=== PATIENT | male | born 1945 | race Caucasian/White ===

== ENCOUNTER 2018-05-19 20:06 | Observation (INO) | payer OTHER ==
[2018-05-19] MEDS ORDERED: NA CHLORIDE 0.9% 1,000 ML ONE (20:23)
[2018-05-19] MEDS ORDERED: MORPHINE 4 MG/ML SYR ONE (20:28)
[2018-05-19] MEDS ORDERED: ASPIRIN 81 MG CHEWABLE TABLET ONE (20:28)
[2018-05-19] MEDS ORDERED: PANTOPRAZOLE 40 MG INJ ONE (20:29)
[2018-05-19] MEDS ORDERED: ONDANSETRON 4 MG/2 ML VIAL ONE (20:29)
[2018-05-19 20:36] LABS: Absolute Lymphocytes (CBC) 1.2 K/uL (0.7-4.9); Absolute Monocytes 0.5 K/uL (0.1-1.3); Absolute Neutrophil 4.5 K/uL (1.8-8.0); Basophils % 1.1 % (0-1.3); Eosinophils % 5.1 % (0-4.4); Lymphocytes % 18.2 % (15.3-44.8); MCH 31.5 pg (27.0-35.0); MPV 8.1 fL (7.6-11.3); Monocytes % 7.9 % (3.3-12.3); RBC Red Blood Cell Count 4.57 M/uL (4.33-5.43)
[2018-05-19 20:42] LABS: Protime INR 0.99
--- NOTE | 2018-05-19 20:47 | RAD REPORT ---
EXAM DESCRIPTION: RAD - Chest Single View - 05/19/2018 8:41 pm CLINICAL HISTORY: CHEST PAIN Chest pain. COMPARISON: CHEST SINGLE VIEW dated 08/16/2015; CHEST SINGLE VIEW dated 08/13/2015; CHEST SINGLE VIE W dated 08/11/2015; CHEST SINGLE VIEW dated 12/11/2009 FINDINGS: Portable technique limits examination quality. The lungs are grossly clear. The heart is normal in size. No displaced fractures.Stimulator device no charity. IMPRESSION: No acute intrathoracic process suspected.
--- NOTE | 2018-05-19 20:50 | EDPHYS ---
Physician Documentation [facility] Name: Christian Gonzales III Age: 73 yrs Sex: Male : 1945 Arrival Date: 05/19/2018 Time: 20:08 Bed 4 Private MD: Jose Gonzales HPI: 05/19 20:18 This 73 yrs old Male presents to ER via Unassigned with complaints of Chest trevor Pain. 20:18 The patient or guardian reports chest pain that is located primarily in the substernal trevor area, epigastric area, anterior chest wall, bilaterally. Onset: just prior to arrival. The pain does not radiate. Associated signs and symptoms: The patient has no apparent associated signs or symptoms. The chest pain is described as causing indigestion, a pressure. Duration: The patient or guardian reports a single episode, that is still ongoing, and unchanged. Modifying factors: The symptoms are alleviated by nothing. the symptoms are aggravated by nothing. Severity of pain: At its worst the pain was mild moderate in the emergency department the pain is unchanged. The patient has experienced similar episodes in the past, a few times. Historical: - Allergies: 20:29 Demerol; fc - Home Meds: 20:29 citalopram 20 mg tab 1 tab once daily [Active]; carbidopa-levodopa 25-100 mg Oral tab 1 fc tab as needed up to eight times a day [Active]; potassium gluconate 550 mg (90 mg) oral tab daily [Active]; ropinirole 8 mg oral Tb24 1 tab once daily [Active]; - PMHx: 20:29 Parkinsons; Myocardial infarction; PVD; cancer - colon and prostate; Hypertension; fc kidney problems; barett's esophagus; - PSHx: 20:29 colon resection; prostetectomy; Hernia repair; deep brain stimulator; fc - Immunization history:: Last tetanus immunization: unknown, Flu vaccine is not up to date. - Social history:: Smoking status: Patient/guardian denies using tobacco. - Family history:: not pertinent. - Ebola Screening: : Patient negative for fever greater than or equal to 101.5 degrees Fahrenheit, and additional compatible Ebola Virus Disease symptoms Patient denies exposure to infectious person Patient denies travel to an Ebola-affected area in the 21 days before illness onset. ROS: 20:18 Constitutional: Negative for fever, chills, and weight loss, Eyes: Negative for injury, trevor pain, redness, and discharge, ENT: Negative for injury, pain, and discharge, Neck: Negative for injury, pain, and swelling, Respiratory: Negative for shortness of breath, cough, wheezing, and pleuritic chest pain, Back: Negative for injury and pain, : Negative for injury, bleeding, discharge, and swelling, MS/Extremity: Negative for injury and deformity, Skin: Negative for injury, rash, and discoloration, Neuro: Negative for headache, weakness, numbness, tingling, and seizure, Psych: Negative for depression, anxiety, suicide ideation, homicidal ideation, and hallucinations, Allergy/Immunology: Negative for hives, rash, and allergies, Endocrine: Negative for neck swelling, polydipsia, polyuria, polyphagia, and marked weight changes, Hematologic/Lymphatic: Negative for swollen nodes, abnormal bleeding, and unusual bruising. 20:18 Cardiovascular: Positive for chest pain. 20:18 Abdomen/GI: Positive for abdominal pain, of the epigastric area, right upper quadrant and left upper quadrant. Exam: 20:18 Constitutional: This is a well developed, well nourished patient who is awake, alert, trevor and in no acute distress. Head/Face: Normocephalic, atraumatic. Eyes: Pupils equal round and reactive to light, extra-ocular motions intact. Lids and lashes normal. Conjunctiva and sclera are non-icteric and not injected. Cornea within normal limits. Periorbital areas with no swelling, redness, or edema. ENT: Nares patent. No nasal discharge, no septal abnormalities noted. Tympanic membranes are normal and external auditory canals are clear. Oropharynx with no redness, swelling, or masses, exudates, or evidence of obstruction, uvula midline. Mucous membranes moist. Neck: Trachea midline, no thyromegaly or masses palpated, and no cervical lymphadenopathy. Supple, full range of motion without nuchal rigidity, or vertebral point tenderness. No Meningismus. Chest/axilla: Normal chest wall appearance and motion. Nontender with no deformity. No lesions are appreciated. Cardiovascular: Regular rate and rhythm with a normal S1 and S2. No gallops, murmurs, or rubs. Normal PMI, no JVD. No pulse deficits. Respiratory: Lungs have equal breath sounds bilaterally, clear to auscultation and percussion. No rales, rhonchi or wheezes noted. No increased work of breathing, no retractions or nasal flaring. Back: No spinal tenderness. No costovertebral tenderness. Full range of motion. Male : Normal genitalia with no discharge or lesions. Skin: Warm, dry with normal turgor. Normal color with no rashes, no lesions, and no evidence of cellulitis. Neuro: Awake and alert, GCS 15, oriented to person, place, time, and situation. Cranial nerves II-XII grossly intact. Motor strength 5/5 in all extremities. Sensory grossly intact. Cerebellar exam normal. Normal gait. Psych: Awake, alert, with orientation to person, place and time. Behavior, mood, and affect are within normal limits. 20:18 Abdomen/GI: Inspection: distension, Bowel sounds: normal, Palpation: mild abdominal tenderness, in the epigastric area, right upper quadrant and left upper quadrant, Liver: no appreciated palpable abnormalities, Hernia: not appreciated. Vital Signs: 20:10 BP 140 / 102; Pulse 84; Resp 18; Temp 97.8(O); Pulse Ox 99% on R/A; Weight 123.38 kg (R); Height 5 ft. 10 in. (177.80 cm) (R); Pain 8/10; 20:30 BP 158 / 95; Pulse 84; Resp 18; Pulse Ox 94% on R/A; aj 22:00 BP 141 / 94; Pulse 77; Resp 18; Pulse Ox 99% on R/A; ak1 20:10 Body Mass Index 39.03 (123.38 kg, 177.80 cm) MDM: 20:09 Patient medically screened. [facility] 20:18 Data reviewed: vital signs, nurses notes, lab test result(s), EKG, radiologic studies, [facility] CT scan, plain films. 05/19 20:10 Order name: Basic Metabolic Panel; Complete Time: 21:20 [facility] 05/19 20:10 Order name: CBC with Diff; Complete Time: 20:45 [facility] 05/19 20:10 Order name: LFT's; Complete Time: 21:20 [facility] 05/19 20:10 Order name: Magnesium; Complete Time: 21:20 [facility] 05/19 20:10 Order name: NT PRO-BNP; Complete Time: 21:20 [facility] 05/19 20:10 Order name: PT-INR; Complete Time: 20:45 [facility] 05/19 20:10 Order name: Troponin (emerg Dept Use Only); Complete Time: 21:20 [facility] 05/19 20:10 Order name: XRAY Chest (1 view); Complete Time: 21:20 [facility] 05/19 20:10 Order name: Lipase; Complete Time: 21:20 [facility] 05/19 20:18 Order name: CT Aorta for Dissection [facility] 05/19 20:54 Order name: Echo with Doppler [facility] 05/19 23:42 Order name: Troponin I [facility] 05/19 20:10 Order name: EKG; Complete Time: 20:11 [facility] 05/19 20:10 Order name: Cardiac monitoring; Complete Time: 20:21 [facility] 05/19 20:10 Order name: EKG - Nurse/Tech; Complete Time: 20:21 [facility] 05/19 20:10 Order name: IV Saline Lock; Complete Time: 20:21 [facility] 05/19 20:10 Order name: Labs collected and sent; Complete Time: 20:21 [facility] 05/19 20:10 Order name: O2 Per Protocol; Complete Time: 20:21 [facility] 05/19 20:10 Order name: O2 Sat Monitoring; Complete Time: 20:21 [facility] 05/19 20:54 Order name: CONS Physician Consult [facility] 05/19 20:54 Order name: CONS Physician Consult [facility] 05/19 21:49 Order name: EKG; Complete Time: 21:49 ms 05/19 21:49 Order name: EKG - Nurse/Tech; Complete Time: 21:57 ms Administered Medications: 20:20 Drug: NS 0.9% 1000 ml Route: IV; Rate: 125 ml/hr; Site: left antecubital; aj 22:18 Follow up: IV Status: Infusion continued upon admission ak1 20:29 Drug: ProTONIX 40 mg Route: IVP; Site: left antecubital; aj 21:49 Follow up: Response: No adverse reaction aj 20:30 Drug: Aspirin 162 mg Route: PO; aj 21:49 Follow up: Response: No adverse reaction aj 20:30 Drug: Zofran 4 mg Route: IVP; Site: left antecubital; aj 21:49 Follow up: Response: No adverse reaction aj 21:48 Drug: Lopressor (metoprolol TARTRATE) 50 mg Route: PO; 22:18 Follow up: Response: No adverse reaction ak1 21:49 Not Given (Patient Refused): morphine 2 mg IVP once aj 21:49 Not Given (Patient Refused): morphine 2 mg IVP once aj 21:49 Drug: Lovenox 100 mg Route: Sub-Q; Site: right lower abdomen; aj 22:18 Follow up: Response: No adverse reaction ak1 Disposition: 05/19/18 20:50 Hospitalization ordered by Alissa Mcclure for Observation. Preliminary diagnosis are Other chest pain, Obesity, unspecified, Essential (primary) hypertension, Parkinson's disease, Nathan's esophagus, Unspecified kidney failure. - Bed requested for Telemetry/MedSurg (observation). - Status is Observation. ak1 - Condition is Fair. - Problem is new. - Symptoms have improved. UTI on Admission? No Signatures: Dispatcher [employer] EDMS Salma Marcos RN RN mw Myers, Amanda, RN RN aj Anderson, Corey, MD MD cha Chretien, Felicia, RN RN fc Solis, Maria ms Krenek, Amber RN RN ak1 Corrections: (The following items were deleted from the chart) 20:53 20:50 Hospitalization Ordered by Alissa Mcclure MD for Observation. Preliminary deisy diagnosis is Other chest pain; Obesity, unspecified; Essential (primary) hypertension; Parkinson's disease; Nathan's esophagus. Bed requested for Telemetry/MedSurg (observation). Status is Observation. Condition is Fair. Problem is new. Symptoms have improved. UTI on Admission? No. trevor 21:31 20:53 05/19/2018 20:50 Hospitalization Ordered by Alissa Mcclure MD for Observation. trevor Preliminary diagnosis is Other chest pain; Obesity, unspecified; Essential (primary) hypertension; Parkinson's disease; Nathan's esophagus. Bed requested for Telemetry/MedSurg (observation). Status is Observation. Condition is Fair. Problem is new. Symptoms have improved. UTI on Admission? No. deisy 05/20 00:02 05/19 21:31 05/19/2018 20:50 Hospitalization Ordered by Alissa Mcclure MD for ak1 Observation. Preliminary diagnosis is Other chest pain; Obesity, unspecified; Essential (primary) hypertension; Parkinson's disease; Nathan's esophagus; Unspecified kidney failure. Bed requested for Telemetry/MedSurg (observation). Status is Observation. Condition is Fair. Problem is new. Symptoms have improved. UTI on Admission? No. trevor
--- NOTE | 2018-05-19 20:50 | ER ---
Nurse's Notes [facility] Name: Christian Gonzales III Age: 73 yrs Sex: Male : 1945 Arrival Date: 05/19/2018 Time: 20:08 Bed 4 Private MD: Diagnosis: Other chest pain;Obesity, unspecified;Essential (primary) hypertension;Parkinson's disease;Nathan's esophagus;Unspecified kidney failure Presentation: 05/19 20:10 Presenting complaint: states: that pt started to have chest pressure at approx fc 1800 after eating. BP at home 191/89. Also having nausea, vomiting and shortness of breath. Transition of care: patient was not received from another setting of care. Onset of symptoms was May 19, 2018 at 19:00. Risk Assessment: Do you want to hurt yourself or someone else? Patient reports no desire to harm self or others. Initial Sepsis Screen: Does the patient meet any 2 criteria? No. Patient's initial sepsis screen is negative. Does the patient have a suspected source of infection? No. Patient's initial sepsis screen is negative. Care prior to arrival: Medication(s) given: Tums x 2 at 2000. 20:10 Method Of Arrival: Wheelchair fc 20:10 Acuity: ANDRES 3 fc Historical: - Allergies: 20:29 Demerol; fc - Home Meds: 20:29 citalopram 20 mg tab 1 tab once daily [Active]; carbidopa-levodopa 25-100 mg Oral tab 1 fc tab as needed up to eight times a day [Active]; potassium gluconate 550 mg (90 mg) oral tab daily [Active]; ropinirole 8 mg oral Tb24 1 tab once daily [Active]; - PMHx: 20:29 Parkinsons; Myocardial infarction; PVD; cancer - colon and prostate; Hypertension; fc kidney problems; barett's esophagus; - PSHx: 20:29 colon resection; prostetectomy; Hernia repair; deep brain stimulator; fc - Immunization history:: Last tetanus immunization: unknown, Flu vaccine is not up to date. - Social history:: Smoking status: Patient/guardian denies using tobacco. - Family history:: not pertinent. - Ebola Screening: : Patient negative for fever greater than or equal to 101.5 degrees Fahrenheit, and additional compatible Ebola Virus Disease symptoms Patient denies exposure to infectious person Patient denies travel to an Ebola-affected area in the 21 days before illness onset. Screenin:10 Abuse screen: Denies threats or abuse. Nutritional screening: No deficits noted. fc Tuberculosis screening: No symptoms or risk factors identified. Fall Risk Fall in past 12 months (25 points). Secondary diagnosis (15 points) parkinson. No IV (0 pts). Ambulatory Aid- Crutches/Cane/Walker (15 pts). Gait- Weak (10 pts.). Mental Status- Overestimates/Forgets Limitations (15 pts.). Total Wolfe Fall Scale indicates High Risk Score (45 or more points). Fall prevention measures have been instituted. Side Rails Up X 2 Placed Close to Nursing Station Frequent Obs/Assessments Occuring Family Present and informed to notify staff if the need to leave the bedside As available patient and family educated on Fall Prevention Program and Strategies. Assessment: 20:30 Reassessment: Patient refused Morphine and stated that he is comfortable. General: aj Appears in no apparent distress. comfortable, Behavior is calm, cooperative, appropriate for age. Pain: Complains of pain in left upper quadrant and right upper quadrant and epigastric area. Pain: Pain does not radiate. Pain began suddenly. Neuro: Level of Consciousness is awake, alert, obeys commands, Oriented to person, place, time, situation, Appropriate for age. Cardiovascular: Capillary refill < 3 seconds in bilateral fingers. Respiratory: Airway is patent Respiratory effort is even, unlabored, Respiratory pattern is regular, symmetrical. Derm: Skin is intact, is healthy with good turgor, Skin is pink, warm \T\ dry. normal. 21:50 Reassessment: Patient appears in no apparent distress at this time. No changes from aj previously documented assessment. Patient and/or family updated on plan of care and expected duration. Pain level reassessed. Patient is alert, oriented x 3, equal unlabored respirations, skin warm/dry/pink. Patient reports he is beginning to have discomfort again. Physician notified. Patient refused pain medication. Vital Signs: 20:10 BP 140 / 102; Pulse 84; Resp 18; Temp 97.8(O); Pulse Ox 99% on R/A; Weight 123.38 kg fc (R); Height 5 ft. 10 in. (177.80 cm) (R); Pain 8/10; 20:30 BP 158 / 95; Pulse 84; Resp 18; Pulse Ox 94% on R/A; aj 22:00 BP 141 / 94; Pulse 77; Resp 18; Pulse Ox 99% on R/A; ak1 20:10 Body Mass Index 39.03 (123.38 kg, 177.80 cm) ED Course: 20:08 Patient arrived in ED. ds1 20:09 Jose Greene MD is Attending Physician. trevor 20:10 Arm band placed on Patient placed in an exam room, on a stretcher. fc 20:10 Patient has correct armband on for positive identification. Bed in low position. Call light in reach. Side rails up X 1. noodle press operator on. Pulse ox on. NIBP on. 20:19 Eva Schulz, AARON is Primary Nurse. aj 20:21 EKG done, by ED staff, reviewed by Jose Greene MD. mt 20:21 Initial lab(s) drawn, by ED staff, sent to lab. Inserted saline lock: 20 gauge in left antecubital area, using aseptic technique. ,using aseptic technique. per Mojgan WALKER Blood collected. 20:23 Triage completed. 20:24 X-ray(s) taken. 20:28 Radiology exam delayed due to lab results not completed at this time. (BUN/Creatinine). 20:30 Patient maintains SpO2 saturation greater than 95% on room air. aj 20:41 XRAY Chest (1 view) In Process Unspecified. EDMS 20:47 Alissa Mcclure MD is Hospitalizing Provider. trevor 21:51 No provider procedures requiring assistance completed. aj 22:30 CT completed. Patient tolerated procedure well. Patient moved to CT via stretcher. Patient moved back from CT. 23:35 Patient admitted, IV remains in place. ak1 Administered Medications: 20:20 Drug: NS 0.9% 1000 ml Route: IV; Rate: 125 ml/hr; Site: left antecubital; aj 22:18 Follow up: IV Status: Infusion continued upon admission ak1 20:29 Drug: ProTONIX 40 mg Route: IVP; Site: left antecubital; aj 21:49 Follow up: Response: No adverse reaction aj 20:30 Drug: Aspirin 162 mg Route: PO; aj 21:49 Follow up: Response: No adverse reaction aj 20:30 Drug: Zofran 4 mg Route: IVP; Site: left antecubital; aj 21:49 Follow up: Response: No adverse reaction aj 21:48 Drug: Lopressor (metoprolol TARTRATE) 50 mg Route: PO; aj 22:18 Follow up: Response: No adverse reaction ak1 21:49 Not Given (Patient Refused): morphine 2 mg IVP once aj 21:49 Not Given (Patient Refused): morphine 2 mg IVP once aj 21:49 Drug: Lovenox 100 mg Route: Sub-Q; Site: right lower abdomen; aj 22:18 Follow up: Response: No adverse reaction ak1 Outcome: 20:50 Decision to Hospitalize by Provider. trevor 23:35 Condition: good ak1 23:35 Instructed on the need for admit. 23:43 Admitted to Tele accompanied by tech, family with patient, room 420, with chart, Report ak1 called to Yoko nurse for 420 05/20 00:02 Patient left the ED. ak1 Signatures: Dispatcher [employer] EDEva Conklin RN RN aj Anderson, Corey, MD MD cha Hagler, Ervin eh Chretien, Felicia RN RN Sherron Melgoza ds1 Adriana Huber RN RN ak1 Tonya Ybarra nd Corrections: (The following items were deleted from the chart) 05/19 23:37 23:36 BP 141 / 94; Pulse 77bpm; Resp 18bpm; Pulse Ox 99% RA; ak1 ak1
[2018-05-19] MEDS: METOPROLOL TAR 50 MG TAB PO SCH (21:00)
[2018-05-19] MEDS ORDERED: MORPHINE 4 MG/ML SYR IV PRN (21:00)
[2018-05-19] MEDS ORDERED: ACETAMINOPHEN 500 MG TAB PO PRN (21:00)
[2018-05-19 21:02] LABS: ALT/SGPT 29 U/L (12-78); AST/SGOT 23 U/L (15-37); Albumin 3.8 g/dL (3.4-5.0); Alkaline Phosphatase 93 U/L (45-117); BUN Blood Urea Nitrogen 30 mg/dL (7-18); Bicarbonate 28 mmol/L (21-32); Bilirubin Direct 0.1 mg/dL (0-0.2); Bilirubin Total 0.5 mg/dL (0.2-1.0); Glucose Level 147 mg/dL (74-106); Lipase 142 U/L (73-393); Magnesium 2.1 mg/dL (1.8-2.4); NT PRO-BNP 61 pg/mL (<125); Potassium 4.4 mmol/L (3.5-5.1); Protein, Total 7.9 g/dL (6.4-8.2); Sodium Level 139 mmol/L (136-145); Troponin (Emerg Dept Use Only) < 0.02 ng/mL (0.0-0.045)
[2018-05-19] MEDS ORDERED: ENOXAPARIN 100 MG/ML SYR SQ ONE (21:51)
[2018-05-19] MEDS ORDERED: METOPROLOL TAR 25 MG TAB ONE (21:51)
[2018-05-20 01:45] VITALS: O2SAT 98; BMI 37.0
[2018-05-20 06:31] LABS: Absolute Lymphocytes (CBC) 0.9 K/uL (0.7-4.9); Absolute Monocytes 0.5 K/uL (0.1-1.3); Basophils % 1.2 % (0-1.3); Eosinophils % 6.6 % (0-4.4); Hematocrit 39.2 % (39.6-49.0); Lymphocytes % 15.9 % (15.3-44.8); MCH 32.3 pg (27.0-35.0); MCV 93.5 fL (80-100); MPV 8.3 fL (7.6-11.3); Monocytes % 8.5 % (3.3-12.3)
--- NOTE | 2018-05-20 06:43 | EKG ---
Test Date: 2018-05-19 Test Time: 21:56:27 Joint Filler: CHAD MEASUREMENT RESULTS: Intervals: Rate: 72 NM: 200 QRSD: 90 QT: 394 QTc: 431 [place]: P: 54 NM: 200 QRS: 20 T: 47 INTERPRETIVE STATEMENTS: Normal sinus rhythm Normal ECG Compared to ECG 05/19/2018 20:15:36 No significant changes Electronically Signed On 05-20-18 06:43:04 CDT by David Rocha
--- NOTE | 2018-05-20 06:43 | EKG ---
Test Date: 2018-05-19 Test Time: 20:15:36 Sales Compensation Analyst: CHAD MEASUREMENT RESULTS: Intervals: Rate: 84 NH: 184 QRSD: 92 QT: 392 QTc: 463 [place]: P: 51 NH: 184 QRS: -1 T: 49 INTERPRETIVE STATEMENTS: Normal sinus rhythm Normal ECG Compared to ECG 08/12/2015 06:26:25 Ventricular premature complex(es) no longer present Electronically Signed On 05-20-18 06:43:06 CDT by David Rocha
[2018-05-20 06:49] LABS: BUN Blood Urea Nitrogen 26 mg/dL (7-18); Bicarbonate 26 mmol/L (21-32); Glucose Level 87 mg/dL (74-106); Magnesium 2.1 mg/dL (1.8-2.4); Potassium 4.2 mmol/L (3.5-5.1); Sodium Level 142 mmol/L (136-145); Troponin I < 0.02 ng/mL (0.0-0.045)
[2018-05-20] MEDS ORDERED: REGADENOSON 0.4 MG/5 ML SYR IV ONE (08:25)
--- NOTE | 2018-05-20 08:42 | RAD REPORT ---
EXAM DESCRIPTION: CT - Chest Abd Pelvis Wo Con - 05/20/2018 4:36 am CLINICAL HISTORY: Chest and abdomen pain. Abdominal distention;Chest pain COMPARISON: CT CHEST ABD PELVIS WO CONT dated 11/27/2014 TECHNIQUE: A limited noncontrast study was performed. All CT scans are performed using dose optimization technique as appropriate and may include automated exposure control or mA/KV adjustment according to patient size. FINDINGS: Linear atelectasis suspected medial left lung base.Moderate axial hiatal hernia.No pleural or pericardial effusion.No intrathoracic adenopathy. The liver, spleen, pancreas, adrenal glands and right kidney are within normal limits. Small nonobstr ucting left renal calculus. Multiple cyst noted left kidney. No bowel obstruction, free air, free fluid or abscess. Right hemicolectomy noted. The appendix appear s surgically absent. No pathologic lymphadenopathy in the abdomen or pelvis. Postsurgical changes are prostatectomy noted. Multilevel lumbar degenerative changes. Mild grade 1 degenerative anterolisthesis of L5 on S1. IMPRESSION: No acute abnormality is detected. Moderate hiatal hernia. Punctate left nephrolithiasis without hydronephrosis.
[2018-05-20] MEDS ORDERED: ENOXAPARIN 40 MG/0.4 ML SQ SCH (09:00)
[2018-05-20] MEDS: METOPROLOL TAR 50 MG TAB PO SCH (09:00)
[2018-05-20] MEDS ORDERED: ASPIRIN EC 81 MG TAB PO SCH (09:00)
--- NOTE | 2018-05-20 09:00 | P.HP ---
Certification for Inpatient Patient admitted to: Observation With expected LOS: <2 Midnights Patient will require the following post-hospital care: None Practitioner: I am a practitioner with admitting privileges, knowledge of patient current condition, hospital course, and medical plan of care. Services: Services provided to patient in accordance with Admission requirements found in Title 42 Section 412.3 of the Code of Federal Regulations Patient History Date of Service: 05/19/18 Reason for admission: Chest pain rule out History of Present Illness: Patient is a 73-year-old gentleman who came into the hospital with chest discomfort. Patient's pain started in the sternal region. It went to his epigastric region. He had a myocardial infarction about 5-10 years ago which started with similar complaints. Patient has a history of Parkinson's disease and has not been sleeping well. His chest pain resolved but his brought him in because she was concerned it was similar to his prior chest pain. Patient had a recent stress test about 4 months ago prior to his deep brain stimulator being placed which was normal. Patient was admitted to the hospital for further evaluation patient. Allergies meperidine HCl [From Demerol] Allergy (Verified 10/08/14 15:24) Anaphylaxis Home Medications: Carbidopa/Levodopa 25-100 [Sinemet 25-100*] 1 tab PO QID 08/11/15 Furosemide 20 mg PO DAILY 08/11/15 Citalopram [Celexa] 20 mg PO DAILY 09/29/15 Potassium Gluconate [Potassium] 1 tab PO DAILY 09/29/15 Ropinirole HCl [Requip Xl] 8 mg PO DAILY 05/20/18 - Past Medical/Surgical History Has patient received pneumonia vaccine in the past: Yes Diabetic: No -: Parkinsons -: leg cramps -: Prostate CA -: Colon ca -: cellulitis -: stent X1 -: L elbow sx removal of bursa (2014) -: removal of partial lg intestines -: stimulus implant for parkinsons (DBS) -: hernia sx - Family History Father Medical History: Other (see notes) Notes: parkinson's Mother Medical History: Heart disease Notes: of heart attact - Social History Smoking Status: Never smoker Alcohol use: No CD- Drugs: No Caffeine use: Yes Place of Residence: Home Review of Systems 10-point ROS is otherwise unremarkable Physical Examination - Vital Signs Temperature: 97.4 F Blood Pressure: 114/68 Pulse: 66 Respirations: 22 Pulse Ox (%): 92 - Physical Exam General: Alert, In no apparent distress, Oriented x3 HEENT: Atraumatic, PERRLA, Mucous membr. moist/pink, EOMI, Sclerae nonicteric Neck: Supple, 2+ carotid pulse no bruit, No LAD, Without JVD or thyroid abnormality Respiratory: Clear to auscultation bilaterally, Normal air movement Cardiovascular: Regular rate/rhythm, Normal S1 S2, No murmurs Gastrointestinal: Normal bowel sounds, Soft and benign, Non-distended, No tenderness Musculoskeletal: No clubbing, No swelling, No tenderness Integumentary: No rashes Neurological: Normal speech, Sensation intact, Cranial nerves 3-12 intact, Normal affect, Abnormal gait, Abnormal strength, Abnormal tone Lymphatics: No axilla or inguinal lymphadenopathy - Studies Laboratory Data (last 24 hrs) 05/19/18 20:21: PT 11.7, INR 0.99 05/19/18 20:21: WBC 6.6, Hgb 14.4, Hct 43.0, Plt Count 195 05/19/18 20:21: Sodium 139, Potassium 4.4, BUN 30 H, Creatinine 1.70 H, Glucose 147 H, Magnesium 2.1, Total Bilirubin 0.5, AST 23, ALT 29, Alkaline Phosphatase 93, Lipase 142 Assessment & Plan - Problems (Diagnosis) (1) Chest pain, rule out acute myocardial infarction Current Visit: Yes Status: Acute (2) Parkinsons disease Current Visit: Yes Status: Acute (3) Epigastric abdominal tenderness Current Visit: Yes Status: Acute (4) History of prostate cancer Current Visit: Yes Status: Acute (5) History of colon cancer Current Visit: Yes Status: Acute - Plan 1. Serial troponins and EKG 2. Cardiology consultation 3. Echocardiogram is pending for in the morning 4. Anti-platelet therapy, anticoagulation, beta-karely, statin, and O2 as needed 5. IV morphine for pain 6. Nitro p.r.n. 7. GI and DVT prophylax Discharge Plan: Home Plan to discharge in: 24 Hours - Advance Directives Does patient have a Living Will: Yes Does patient have a Durable POA for Healthcare: Yes - Code Status/Comfort Care Code Status Assessed: Yes Code Status: Full Code Critical Care: No Time Spent Managing PTS Care (In Minutes): 50
--- NOTE | 2018-05-20 12:58 | ECHO ---
HEIGHT: 5 ft 11 in WEIGHT: 265 lb 11.2 oz DATE OF STUDY: 05/20/[address]: Jose Greene MD 2-DIMENSIONAL: YES M.MODE: YES DOPPLER: YES COLOR FLOW: YES TDS: NO PORTABLE: NO DEFINITY: NO BUBBLE STUDY: NO DIAGNOSIS: CHEST PAIN CARDIAC HISTORY: CATHERIZATION: NO SURGERY: NO PROSTHETIC VALVE: NO PACEMAKER: NO MEASUREMENTS (cm) DIASTOLIC (NORMALS) SYSTOLIC (NORMALS) IVSd 1.2 (0.6-1.2) LA Diam 3.5 (1.9-4.0) LVEF 68% LVIDd 4.5 (3.5-5.7) LVIDs 2.8 (2.0-3.5) %FS 38% LVPWd 1.1 (0.6-1.2) Ao Diam 3.4 (2.0-3.7) 2 DIMENSIONAL ASSESSMENT: RIGHT ATRIUM: NORMAL LEFT ATRIUM: NORMAL RIGHT VENTRICLE: NORMAL LEFT VENTRICLE: NORMAL TRICUSPID VALVE: NORMAL MITRAL VALVE: NORMAL PULMONIC VALVE: NORMAL AORTIC VALVE: NORMAL PERICARDIAL EFFUSION: NONE AORTIC ROOT: NORMAL LEFT VENTRICULAR WALL MOTION: NORMAL. DOPPLER/COLOR FLOW: TRACE OF MITRAL REGURGITATION. COMMENTS: NORMAL 2D ECHO. TRACE OF MITRAL REGURGITATION. TECHNOLOGIST: WILLIAMS DEGROOT
--- NOTE | 2018-05-20 13:46 | CON ---
History Of Present Illness: Mr. Gonzales is 73. He came to the hospital with mid epigastric and lo wer chest pain. It was pressure and burning, and it occurred about 30 minutes after a meal. Since hawa yañez has been here in the hospital, his enzymes and EKGs are normal. He has a history of coronary heart disease with an LAD stent in 2004. No other coronary intervention since then. One of our notes as he has a pacemaker, but it is actually a dorsal column stimulator, not a pacemaker. Past Medical History: Otherwise significant for Parkinson disease, hypertension, Nathan's esophagus , and renal insufficiency. His stimulator is not a dorsal column stimulator, but a deep brain stimul ator for Parkinson disease. Medications: His home medications are citalopram 20, carbidopa-levodopa 25/100 up to 8 times a day, potassium gluconate, ropinirole. Physical Examination: General: Mr. Gonzales is obese. Vital signs: Five feet and 11 inches, 265 pounds. HEENT: Normal. Lungs: Clear. Cardiac: Within normal limits. Abdomen: Soft. Extremities: Palpable distal pulses. Mild edema. Laboratory Data: His EKG is normal. Troponins are all normal, and his electrocardiogram is normal. Impression: Mr. Gonzales may have had a gallbladder attack rather than this being unstable angina, the history is more consistent with that. We will do a nuclear stress test and ultrasound of the abdomen, and proceed with his care afte r we know the results of those tests. DM Voice ID: [id number] Report ID: [id number]
--- NOTE | 2018-05-20 14:01 | RAD REPORT ---
EXAM DESCRIPTION: US - Abdomen Exam Limited - 05/20/2018 12:42 pm CLINICAL HISTORY: Abdominal pain, nausea and vomiting COMPARISON: None. FINDINGS: No gallstones, sludge or other abnormalities within the gallbladder lumen. There is no wal l thickening or pericholecystic fluid. No common duct stone or biliary tree dilatation identified. IMPRESSION: Normal gallbladder and biliary tree ultrasound.
--- NOTE | 2018-05-20 14:50 | P.SSS ---
Patient History Date of Service: 05/20/18 Reason for admission: Chest pain rule out History of Present Illness: Patient is a 73-year-old gentleman who came into the hospital with chest discomfort. Patient's pain started in the sternal region. It went to his epigastric region. He had a myocardial infarction about 5-10 years ago which started with similar complaints. Patient has a history of Parkinson's disease and has not been sleeping well. His chest pain resolved but his brought him in because she was concerned it was similar to his prior chest pain. Patient had a recent stress test about 4 months ago prior to his deep brain stimulator being placed which was normal. Patient was admitted to the hospital for further evaluation patient. Allergies meperidine HCl [From Demerol] Allergy (Verified 10/08/14 15:24) Anaphylaxis Home Medications: Carbidopa/Levodopa 25-100 [Sinemet 25-100*] 1 tab PO QID 08/11/15 Furosemide 20 mg PO DAILY 08/11/15 Citalopram [Celexa*] 20 mg PO DAILY 09/29/15 Potassium Gluconate [Potassium] 1 tab PO DAILY 09/29/15 Ropinirole HCl [Requip Xl] 8 mg PO DAILY 05/20/18 - Past Medical/Surgical History Has patient received pneumonia vaccine in the past: Yes Diabetic: No -: Parkinsons -: leg cramps -: Prostate CA -: Colon ca -: cellulitis -: stent X1 -: L elbow sx removal of bursa (2014) -: removal of partial lg intestines -: stimulus implant for parkinsons (DBS) -: hernia sx - Family History Father -: Other (see notes) Notes: parkinson's Mother -: Heart disease Notes: of heart attact - Social History Smoking Status: Never smoker Alcohol use: No CD- Drugs: No Caffeine use: Yes Place of Residence: Home Review of Systems 10-point ROS is otherwise unremarkable Physical Examination - Vital Signs Temperature: 98.5 F Blood Pressure: 127/70 Pulse: 63 Respirations: 18 Pulse Ox (%): 93 - Physical Exam General: Alert, In no apparent distress HEENT: Atraumatic, PERRLA, Mucous membr. moist/pink, EOMI, Sclerae nonicteric Neck: Supple, 2+ carotid pulse no bruit, No LAD, Without JVD or thyroid abnormality Respiratory: Clear to auscultation bilaterally, Normal air movement Cardiovascular: Regular rate/rhythm, Normal S1 S2 Gastrointestinal: Normal bowel sounds, No tenderness Musculoskeletal: No tenderness Integumentary: No rashes Neurological: Normal gait, Normal speech, Normal strength at 5/5 x4 extr, Normal tone, Normal affect Lymphatics: No axilla or inguinal lymphadenopathy - Studies Laboratory Data (last 24 hrs) 05/19/18 20:21: PT 11.7, INR 0.99 05/19/18 20:21: WBC 6.6, Hgb 14.4, Hct 43.0, Plt Count 195 05/19/18 20:21: Sodium 139, Potassium 4.4, BUN 30 H, Creatinine 1.70 H, Glucose 147 H, Magnesium 2.1, Total Bilirubin 0.5, AST 23, ALT 29, Alkaline Phosphatase 93, Lipase 142 - Diagnosis (Problem(s)) (1) Chest pain, rule out acute myocardial infarction Onset Date: 05/20/18 Current Visit: Yes Status: Acute (2) History of colon cancer Current Visit: Yes Status: Acute (3) Parkinsons disease Onset Date: 05/20/18 Current Visit: Yes Status: Acute Treatment Summary: Overall during the hospital stay patient made stable Patient admitted to the hospital for chest pain most likely atypical secondary to Parkinson's disease. Echocardiogram done here in the hospital negative for any acute abnormality. Stress test negative for any acute abnormality as well. Patient then discharged home under stable condition - Disposition Disposition: ROUTINE DISCHARGE Condition: GOOD Patient Discharge Instructions: Okay to DC once ECHO and stress test Negative Diet: Regular Activity: Ad mona
--- NOTE | 2018-05-20 15:03 | RAD REPORT ---
EXAM DESCRIPTION: NM - Rest Stress Cardiac Imaging - 05/20/2018 2:40 pm CLINICAL HISTORY: Chest pain COMPARISON: None. TECHNIQUE: The patient was administered 9.3 mCi of Tc 99m Sestamibi prior to resting SPECT imaging o f the heart. The patient was then administered 31.1 mCi of Tc 99m Sestamibi following exercise or pha rmacologic stress. Multiplanar SPECT images were reviewed. FINDINGS: The end diastolic volume is 121 ml, the end systolic volume is 48 ml, and the ejection fra ction is 60 %. No stress-induced ischemic changes confirmed on this study. Moderately large area of diminished activ ity seen along the inferior wall involving base to apex. There are numerous small areas of diminished activity in the septum, anterior wall and lateral wall. These are not clearly different between the stress and rest acquisitions. IMPRESSION: No stress-induced ischemic changes confirmed. Moderately large area diminished activity in the inferior wall with numerous other small areas of dim inished activity stable between rest and stress imaging. These are likely a combination of technical artifacts and small areas of scarring. End-diastolic volume is enlarged at 121 milliliters with a normal 60% EF.
[2018-05-20 16:53] VITALS: BP 120/82; TEMP 97.4
--- NOTE | 2018-05-21 07:58 | TREADPHA ---
DX: CHEST PAIN Date of Study: 05/20/2018 Ht: 5 11 Wt: 265 lb 11.2 oz Consulting Physician: SARAH MEDICATIONS: TYLEONOL, ASPIRIN, LOVENOX, LOPRESSOR HISTORY: 73 YEAR OLD MALE WITH COMPLAINTS OF CHEST PAIN. MEDICAL HISTORY OF PARKINSONS, MYOCARDIAL INFARCTION, COLON AND PROSTATE CANCER, HYPERTENSION PHYSICIAL EXAMINATION: RESTING B.P.: 156/93 RESTING H.R.: 71 RESTING EKG: NORMAL PROTOCOL: LEXISCAN EXERCISE TIME: 3:30 B.P. AT PEAK STRESS: 148/78 IMPRESSION: LEXISCAN INJECTED. CARDIOLITE INJECTED PER PROTOCOL. SEE NUCLEAR MEDICINE REPORT. NO SUPRAVENTRICULAR OR VENTRICULAR TACHYCARDIA. ONE PREMATURE VENTRICULAR COMPLEXES IN RECOVERY. DENIED CHEST PAIN. NON DIAGNOSTIC EKG WITH LEXISCAN STRESS.
== END 2018-05-20 18:10 | disposition home or self-care (01) ==
LOC: ER 20:06 → ERHOLD 20:51 → 4TH 23:40
PROVIDERS: ADMIT Hospitalist; ATTEND Hospitalist
DX: R07.9 Chest pain, unspecified (principal); G20 Parkinson's disease; R10.816 Epigastric abdominal tenderness; I25.10 Atherosclerotic heart disease of native coronary artery without angina pectoris; Z95.5 Presence of coronary angioplasty implant and graft; Z85.46 Personal history of malignant neoplasm of prostate; Z85.038 Personal history of other malignant neoplasm of large intestine
CPT/HCPCS: 36415; 71045; 71250; 74176; 76705; 78452; 80048 ×2; 80076; 83690; 83735 ×2; 83880; 84484 ×3; 85025 ×2; 85610; 93005 ×2; 93017; 93306; 96361; 96372; 96374; 96375; 99285; A9500; C9113; G0378 ×2; J1650; J2405; J2785; J7030

== ENCOUNTER 2018-07-09 16:43 | Emergency (ER) | payer OTHER ==
[2018-07-09] MEDS ORDERED: ONDANSETRON 4 MG/2 ML VIAL ONE (17:35)
[2018-07-09] MEDS ORDERED: MORPHINE 4 MG/ML SYR ONE (17:35)
[2018-07-09 17:48] LABS: Absolute Lymphocytes (CBC) 1.1 K/uL (0.7-4.9); Absolute Monocytes 1.2 K/uL (0.1-1.3); Absolute Neutrophil 8.6 K/uL (1.8-8.0); Eosinophils % 1.2 % (0-4.4); Hematocrit 41.7 % (39.6-49.0); Lymphocytes % 9.5 % (15.3-44.8); MCH 31.1 pg (27.0-35.0); MCV 94.2 fL (80-100); MPV 7.9 fL (7.6-11.3); Monocytes % 10.6 % (3.3-12.3); RBC Red Blood Cell Count 4.42 M/uL (4.33-5.43)
[2018-07-09 17:56] LABS: Protime INR 1.15
[2018-07-09 18:03] LABS: ALT/SGPT 14 U/L (12-78); AST/SGOT 26 U/L (15-37); Albumin 3.6 g/dL (3.4-5.0); Alkaline Phosphatase 136 U/L (45-117); BUN Blood Urea Nitrogen 26 mg/dL (7-18); Bicarbonate 27 mmol/L (21-32); Bilirubin Direct 0.3 mg/dL (0-0.2); Bilirubin Total 0.9 mg/dL (0.2-1.0); Glucose Level 120 mg/dL (74-106); Magnesium 2.2 mg/dL (1.8-2.4); NT PRO-BNP 2139 pg/mL (<125); Potassium 4.6 mmol/L (3.5-5.1); Protein, Total 8.4 g/dL (6.4-8.2); Sodium Level 136 mmol/L (136-145); Troponin (Emerg Dept Use Only) < 0.02 ng/mL (0.0-0.045)
[2018-07-09] MEDS ORDERED: LORazepam 2 MG/ML VIAL ONE (18:17)
--- NOTE | 2018-07-09 18:41 | RAD REPORT ---
EXAM DESCRIPTION: Marisol Single View07/09/2018 6:20 pm CLINICAL HISTORY: Shortness of breath COMPARISON: April 2018 FINDINGS: Left lung base is hazy. Right lung appears clear. . The heart is normal size. Neurostimula tor device ascends the left neck. A hiatal hernia seen IMPRESSION: Left lung base is hazy probably representing pneumonia. This should be followed until i t is clear to exclude a post obstructive process/underlying mass
[2018-07-09] MEDS ORDERED: ALBUTEROL 2.5 MG/3 ML NEB SOL ONE (18:48)
[2018-07-09] MEDS ORDERED: IPRATROPIUM BROM 0.5MG/2.5ML ONE (18:48)
[2018-07-09] MEDS ORDERED: Levofloxacin 750mg IV 750 MG/150 ML BAG IV ONE (19:08)
[2018-07-09] MEDS ORDERED: CEFTRIAXONE/SWI 1gm 1 GM/10 ML SYR ONE (19:09)
--- NOTE | 2018-07-09 19:24 | EDPHYS ---
Physician Documentation [facility] Name: Christian Gonzales III Age: 73 yrs Sex: Male : 1945 Arrival Date: 07/09/2018 Time: 16:44 Bed 4 Private MD: Ramez Mitchell H ED Physician Ricardo Brown HPI: 07/09 22:09 This 73 yrs old Male presents to ER via Wheelchair with complaints of Flank tw4 Pain, Breathing Difficulty. 22:09 The patient complains of pain in the left mid back. The pain does not radiate. Onset: tw4 The symptoms/episode began/occurred today. Modifying factors: The symptoms are alleviated by nothing. the symptoms are aggravated by nothing. Associated signs and symptoms: Pertinent positives:. Severity of pain: At its worst the pain was moderate in the emergency department the pain is unchanged. 22:12 The patient has shortness of breath at rest. Duration: The symptoms are continuous, and tw4 are unchanged since they started. The patient's shortness of breath is aggravated by light activity. Associated signs and symptoms: The patient has no apparent associated signs or symptoms. The patient has not experienced similar symptoms in the past. Historical: - Allergies: 16:57 Demerol; jl7 - Home Meds: 19:50 Potassium Chloride 99 mg Oral once daily [Active]; Lasix 20 mg Oral tab 2 tabs 2 times hb per day [Active]; carbidopa-levodopa 25-100 mg Oral tab 2 tabs as needed up to eight times a day [Active]; citalopram 20 mg tab 1 tab once daily [Active]; ropinirole 8 mg Oral Tb24 1 tab once daily [Active]; - PMHx: 16:57 barett's esophagus; cancer - colon and prostate; Hypertension; kidney problems; jl7 Myocardial infarction; Parkinsons; PVD; prostate cancer; - PSHx: 16:57 colon resection; prostetectomy; Hernia repair; deep brain stimulator; jl7 - Immunization history:: Adult Immunizations up to date. - Social history:: Smoking status: Patient/guardian denies using tobacco. - Ebola Screening: : Patient negative for fever greater than or equal to 101.5 degrees Fahrenheit, and additional compatible Ebola Virus Disease symptoms. ROS: 22:12 Constitutional: Negative for fever, chills, and weight loss. tw4 22:12 Abdomen/GI: Negative for abdominal pain, nausea, vomiting, diarrhea, and constipation, Back: Negative for injury and pain, MS/Extremity: Negative for injury and deformity, Skin: Negative for injury, rash, and discoloration, Neuro: Negative for headache, weakness, numbness, tingling, and seizure. 22:12 Cardiovascular: Positive for chest pain, Negative for 22:12 Respiratory: Positive for cough, with no reported sputum, pleurisy, shortness of breath, at rest. Exam: 22:12 Constitutional: This is a well developed, well nourished patient who is awake, alert, tw4 and in no acute distress. Neck: Trachea midline, no thyromegaly or masses palpated, and no cervical lymphadenopathy. Supple, full range of motion without nuchal rigidity, or vertebral point tenderness. No Meningismus. Chest/axilla: Normal chest wall appearance and motion. Nontender with no deformity. No lesions are appreciated. Cardiovascular: Regular rate and rhythm with a normal S1 and S2. No gallops, murmurs, or rubs. Normal PMI, no JVD. No pulse deficits. 22:12 Respiratory: moderate respiratory distress is noted, Respirations: Breath sounds: decreased breath sounds, that are moderate, are located in both bases. Vital Signs: 16:57 BP 124 / 61; Pulse 75; Resp 28; Temp 98.9(TE); Pulse Ox 92% on R/A; Weight 124.74 kg; jl7 Height 5 ft. 10 in. (177.80 cm); 17:18 BP 130 / 63; Pulse 88; Resp 24; Pulse Ox 96% on 2 lpm NC; Pain 10/10; ed1 18:24 BP 128 / 70; Pulse 83; Resp 19; Pulse Ox 95% on 4 lpm NC; Pain 8/10; ed1 19:59 BP 113 / 67; Pulse 96; Resp 20; Pulse Ox 94% on NC; mt 20:39 BP 114 / 68; Pulse 95; Resp 24; Pulse Ox 94% on NC; mt 21:03 BP 100 / 52; Pulse 98; Resp 26 S; Pulse Ox 94% on 3 lpm NC; jd3 21:25 BP 98 / 57; Pulse 94; Resp 25 S; Pulse Ox 93% on R/A; jd3 21:40 BP 87 / 63; Pulse 95; Resp 23 S; Pulse Ox 95% on R/A; jd3 22:00 BP 94 / 54; Pulse 92; Resp 24 S; Pulse Ox 94% on 3 lpm NC; jd3 22:22 BP 89 / 49; Pulse 94; Resp 22; Pulse Ox 94% on 3 lpm NC; mt 22:30 BP 83 / 50; Pulse 92; Resp 25 S; Pulse Ox 93% on 3 lpm NC; jd3 22:55 BP 98 / 72; Pulse 105; Resp 26 S; Pulse Ox 93% on 3 lpm NC; jd3 22:55 BP 116 / 97; Pulse 111; Resp 16; Pulse Ox 92% on 3 lpm NC; jd3 23:38 BP 117 / 99; Pulse 118; Resp 20; Pulse Ox 95% on 3 lpm NC; mt 07/10 00:04 BP 121 / 78; Pulse 105; Resp 28 S; Pulse Ox 93% on 3 lpm NC; jd3 07/09 16:57 Body Mass Index 39.46 (124.74 kg, 177.80 cm) jl7 MDM: 07/09 17:08 Patient medically screened. tw4 22:12 Antibiotic administration: Levaquin and Rocephin given. Differential diagnosis: CHF tw4 exacerbation, Chronic Obstructive Pulmonary Disease pneumonia, Pneumothorax pulmonary edema, Pulmonary Embolism reactive airway disease. Data reviewed: vital signs, nurses notes. Data interpreted: equipment monitor phototypesetting: rhythm is normal sinus rhythm, Pulse oximetry: Interpretation: normal. Test interpretation: by ED physician or midlevel provider: ECG. Counseling: I had a detailed discussion with the patient and/or guardian regarding: the historical points, exam findings, and any diagnostic results supporting the discharge/admit diagnosis. ED course: Pt brought to room 26 with complaint of pleuritic left sided chest pain and SOB. CXR revealed left sided pneumonia vs pleural effusion. Decided to treat for pneumonia with Rocephin and Levaquin. Pt also received Zofran secondary to nausea. Shortly thereafter pt began to have runs of Torsades de pointes. Pt was given magnesium and polymorphic VT ceased. Admitted pt, but facility had no ICU beds, will need transfer to [facility] for higher level of care. D/W Dr Diamond and Dr Zhao who agree with treatment plan and admission. 07/09 17:28 Order name: Basic Metabolic Panel [facility] 07/09 17:28 Order name: CBC with Diff [facility] 07/09 17:28 Order name: LFT's [facility] 07/09 17:28 Order name: Magnesium [facility] 07/09 17:28 Order name: NT PRO-BNP [facility] 07/09 17:28 Order name: PT-INR [facility] 07/09 17:28 Order name: Troponin (emerg Dept Use Only) [facility] 07/09 17:48 Order name: CBC with Automated Diff; Complete Time: 19:31 EDMS 07/09 21:04 Interpretation: Normal except: WBC 11.1; JOSIAS% 77.7; LYM% 9.5; NEUT A 8.6. [facility] 07/09 17:57 Order name: Protime (+INR); Complete Time: 19:31 EDMS 07/09 18:04 Order name: Basic Metabolic Panel; Complete Time: 18:55 EDMS 07/09 21:04 Interpretation: Normal except: GLUC 120; BUN 26; CRE 1.60; GFR 43. [facility] 07/09 18:04 Order name: Liver (Hepatic) Function; Complete Time: 19:35 EDMS 07/09 21:04 Interpretation: Normal except: ALK 136; BILID 0.3; TP 8.4; GLOB 4.8; A/G 0.8. [facility] 07/09 18:04 Order name: Troponin (Emerg Dept Use Only); Complete Time: 19:35 EDMS 07/09 18:04 Order name: NT PRO-BNP; Complete Time: 19:35 EDMS 07/09 18:04 Order name: Magnesium; Complete Time: 19:35 EDMS 07/09 19:57 Order name: Lactate [facility] 07/09 19:57 Order name: Blood Culture Adult (2) [facility] 07/09 19:57 Order name: Procalcitonin [facility] 07/09 19:57 Order name: Lactate; Complete Time: 21:04 EDMS 07/09 21:04 Interpretation: Within normal limits: LAC 1.5. [facility] 07/09 19:57 Order name: Blood Culture [facility] 07/09 19:57 Order name: Procalcitonin; Complete Time: 21:04 EDMS 07/09 21:05 Order name: Magnesium; Complete Time: 21:27 [facility] 07/09 17:28 Order name: XRAY Chest (1 view) [facility] 07/09 17:28 Order name: EKG; Complete Time: 17:29 [facility] 07/09 17:28 Order name: Cardiac monitoring; Complete Time: 17:32 [facility] 07/09 17:28 Order name: EKG - Nurse/Tech; Complete Time: 17:32 [facility] 07/09 17:28 Order name: IV Saline Lock; Complete Time: 17:32 [facility] 07/09 17:28 Order name: Labs collected and sent; Complete Time: 17:32 [facility] 07/09 17:28 Order name: O2 Per Protocol; Complete Time: 17:32 [facility] 07/09 17:28 Order name: O2 Sat Monitoring; Complete Time: 17:32 [facility] 07/09 18:41 Order name: RAD; Complete Time: 18:52 [facility] 07/09 18:52 Interpretation: No acute disease except. [facility] 07/09 21:07 Order name: CONS Physician Consult [facility] 07/09 21:07 Order name: NPO [facility] 07/09 23:00 Order name: XRAY Chest (1 view) [facility] 07/09 23:00 Order name: EKG - Nurse/Tech; Complete Time: 23:09 [facility] 07/09 23:00 Order name: EKG; Complete Time: 23:01 j Administered Medications: 17:35 Drug: morphine 4 mg Route: IVP; Site: right antecubital; hb 17:35 Drug: Zofran 4 mg Route: IVP; Site: right antecubital; hb 18:15 Drug: Ativan 1 mg Route: IVP; Site: right antecubital; hb 19:35 Follow up: Response: No adverse reaction jd3 18:43 Drug: Albuterol - atroVENT (3:1) (2.5 mg - 0.5 mg) 3 ml Route: Nebulizer; ed1 19:35 Follow up: Response: No adverse reaction jd3 19:02 Drug: Rocephin 1 grams Route: IV; Rate: calculated rate; Site: right antecubital; ed1 19:35 Follow up: Response: No adverse reaction jd3 19:35 Follow up: Response: No adverse reaction; IV Status: Completed infusion jd3 19:11 Drug: LevaQUIN 750 mg Volume: 150 ml; Route: IVPB; Infused Over: 90 mins; Site: right ed1 antecubital; 19:35 Follow up: Response: Adverse reaction, Physician notified; IV Status: Order to [facility] discontinue infusion 19:41 Drug: Magnesium Sulfate 2 grams Route: IVPB; Infused Over: 2 mins; Site: right d3 antecubital; 20:00 Follow up: Response: No adverse reaction; IV Status: Completed infusion jd3 19:58 Drug: Lovenox 100 mg Route: Sub-Q; Site: abdomen; j 20:45 Follow up: Response: No adverse reaction jd3 19:59 CANCELLED (order changed): Magnesium Sulfate 1 grams IVPB once over 1 mins; ivp hb 21:05 Drug: Magnesium Sulfate 2 grams Route: IVPB; Infused Over: 1 mins; Site: right antecubital; 21:35 Follow up: Response: No adverse reaction; IV Status: Completed infusion jd3 21:20 Drug: NS 0.9% 1000 ml Route: IV; Rate: 1 bolus; Site: left antecubital; jd3 21:55 Follow up: Response: No adverse reaction; IV Status: Completed infusion; IV Intake: jd3 1000ml 21:50 Drug: Lidocaine 50 mg Route: IVP; Site: left antecubital; jd3 22:20 Follow up: Response: No adverse reaction jd3 21:50 Drug: Lidocaine Drip 1 mg/min Route: IV; Rate: calculated rate; Site: left antecubital; jd3 23:50 Follow up: IV Status: Infusion continued upon transfer jd3 22:58 Drug: Phenylephrine 50 mcg/min Route: IV; Rate: calculated rate; Site: right [facility] antecubital; 23:51 Follow up: IV Status: Infusion continued upon transfer jd3 23:50 Drug: Lasix 20 mg Route: IVP; Site: left antecubital; jd3 07/10 00:18 Follow up: Response: No adverse reaction jd3 Disposition: 07/09 22:12 Critical Care:. tw4 Disposition: 07/09/18 21:48 Transfer ordered to [facility]. Diagnosis are Pneumonia due to other specified bacteria, Hypoxemia, Ventricular tachycardia, torsades de pointes. - Reason for transfer: Higher level of care. - Accepting physician is Dr Diamond. - Condition is Critical. - Problem is new. - Symptoms are unchanged. Critical care time excluding procedures: 22:12 Critical care time: Bedside Care: 45 minutes, Consultation: 10 minutes, Family tw4 Intervention: 10 minutes. Total time: 65 minutes Signatures: Dispatcher [employer] EDMS Kayli Pimentel RN RN Nisha Wright [facility] ed1 July Nava RN RN Drew West RN RN jl7 Mark Greenwood RN RN jd3 Ricardo Brown MD MD tw4 Corrections: (The following items were deleted from the chart) 19:45 19:12 Hospitalization Ordered by Alissa Mcclure MD for Inpatient Admission. Preliminary tw4 diagnosis is Pneumonia due to other specified bacteria. Bed requested for Telemetry/MedSurg (Inpatient). Status is Inpatient Admission. Condition is Stable. Problem is new. Symptoms have improved. UTI on Admission? No. tw4 19:50 19:45 07/09/2018 19:12 Hospitalization Ordered by Alissa Mcclure MD for Inpatient tw4 Admission. Preliminary diagnosis is Pneumonia due to other specified bacteria. Bed requested for Intensive Care Unit. Status is Inpatient Admission. Condition is Stable. Problem is new. Symptoms have improved. UTI on Admission? No. tw4 19:59 19:45 Magnesium Sulfate 1 grams IVPB once over 1 mins; ivp ordered. tw4 21:45 19:50 07/09/2018 19:12 Hospitalization Ordered by Alissa Mcclure MD for Inpatient tw4 Admission. Preliminary diagnosis is Pneumonia due to other specified bacteria; Hypoxemia; Ventricular tachycardia; Torsades de pointes. Bed requested for Intensive Care Unit. Status is Inpatient Admission. Condition is Stable. Problem is new. Symptoms have improved. UTI on Admission? No. tw4 07/10 00:19 07/09 21:48 07/09/2018 21:48 Transfer ordered to [facility]. jd3 Diagnosis is Pneumonia due to other specified bacteria; Hypoxemia; Ventricular tachycardia; torsades de pointes. Reason for transfer: Higher level of care. Accepting physician is Dr Diamond. Condition is Critical. Problem is new. Symptoms are unchanged.
--- NOTE | 2018-07-09 19:24 | ER ---
Nurse's Notes [facility] Name: Christian Gonzales III Age: 73 yrs Sex: Male : 1945 Arrival Date: 07/09/2018 Time: 16:44 Bed 4 Private MD: Ramez Mitchell H Diagnosis: Pneumonia due to other specified bacteria;Hypoxemia;Ventricular tachycardia;torsades de pointes Presentation: 07/09 16:54 Presenting complaint: Patient states: Difficulty breathing started last night and had jl7 progressively gotten worse, reports pain under left ribs. 16:55 Transition of care: patient was not received from another setting of care. Onset of jl7 symptoms was July 08, 2018. Risk Assessment: Do you want to hurt yourself or someone else? Patient reports no desire to harm self or others. Initial Sepsis Screen: Does the patient meet any 2 criteria? No. Patient's initial sepsis screen is negative. Does the patient have a suspected source of infection? No. Patient's initial sepsis screen is negative. Care prior to arrival: None. 16:55 Method Of Arrival: Wheelchair jl7 16:55 Acuity: ANDRES 2 jl7 Triage Assessment: 19:35 Respiratory: the patient has moderate shortness of breath. jd3 Historical: - Allergies: 16:57 Demerol; jl7 - Home Meds: 19:50 Potassium Chloride 99 mg Oral once daily [Active]; Lasix 20 mg Oral tab 2 tabs 2 times hb per day [Active]; carbidopa-levodopa 25-100 mg Oral tab 2 tabs as needed up to eight times a day [Active]; citalopram 20 mg tab 1 tab once daily [Active]; ropinirole 8 mg Oral Tb24 1 tab once daily [Active]; - PMHx: 16:57 barett's esophagus; cancer - colon and prostate; Hypertension; kidney problems; jl7 Myocardial infarction; Parkinsons; PVD; prostate cancer; - PSHx: 16:57 colon resection; prostetectomy; Hernia repair; deep brain stimulator; jl7 - Immunization history:: Adult Immunizations up to date. - Social history:: Smoking status: Patient/guardian denies using tobacco. - Ebola Screening: : Patient negative for fever greater than or equal to 101.5 degrees Fahrenheit, and additional compatible Ebola Virus Disease symptoms. Screenin:21 Abuse screen: Denies threats or abuse. Denies injuries from another. Nutritional ed1 screening: No deficits noted. Tuberculosis screening: No symptoms or risk factors identified. Fall Risk No fall in past 12 months (0 pts). Secondary diagnosis (15 points) impaired mobility, IV access (20 points). Ambulatory Aid- Crutches/Cane/Walker (15 pts). Gait- Weak (10 pts.). Mental Status- Oriented to own ability (0 pts). Total Wolfe Fall Scale indicates High Risk Score (45 or more points). Fall prevention measures have been instituted. Side Rails Up X 2 Frequent Obs/Assessments Occuring Family Present and informed to notify staff if the need to leave the bedside As available patient and family educated on Fall Prevention Program and Strategies. Assessment: 17:18 General: Appears distressed, Behavior is anxious. Pain: Complains of pain in left ed1 lateral anterior chest Pain does not radiate. Pain currently is 10 out of 10 on a pain scale. Quality of pain is described as sharp, Pain began 1 day ago. Is continuous. Neuro: Level of Consciousness is awake, alert, obeys commands, Oriented to person, place, time, situation. Cardiovascular: Denies chest pain, diaphoresis, fatigue, lightheadedness, Heart tones S1 S2 present Rhythm is sinus rhythm. Respiratory: Reports shortness of breath Airway is patent Respiratory effort is even, labored, Respiratory pattern is hyperventilation Breath sounds are clear bilaterally. GI: Patient currently denies diarrhea, nausea, vomiting. : No signs and/or symptoms were reported regarding the genitourinary system. EENT: No signs and/or symptoms were reported regarding the EENT system. Derm: Skin is intact, is healthy with good turgor, Skin is pink, warm \T\ dry. Musculoskeletal: Circulation, motion, and sensation intact. Capillary refill Range of motion: intact in all extremities. 17:25 Reassessment: I agree with previous assessment. hb 18:24 Reassessment: No changes from previously documented assessment. Patient and/or family ed1 updated on plan of care and expected duration. Pain level reassessed. Patient is alert, oriented x 3, equal unlabored respirations, skin warm/dry/pink. Patient states symptoms have not improved. 19:35 Reassessment: Patient and/or family updated on plan of care and expected duration. Pain jd3 level reassessed. received pt from Geo WALKER. pt with runs of VTach and shortness of breath , provider notified, new orders received. 19:35 General: Appears distressed, Behavior is anxious. jd3 19:35 Pain: Complains of pain in chest. Cardiovascular: Reports chest pain, Heart tones S1 S2 jd3 present. Respiratory: Reports shortness of breath Airway is patent Respiratory effort is even, labored, Respiratory pattern is hyperventilation Breath sounds are diminished. 20:20 Reassessment: Patient and/or family updated on plan of care and expected duration. Pain jd3 level reassessed. pt reporting decreased pain sensation. 21:15 Reassessment: No changes from previously documented assessment. Patient and/or family jd3 updated on plan of care and expected duration. Pain level reassessed. 22:05 Reassessment: Patient and/or family updated on plan of care and expected duration. Pain jd3 level reassessed. pt resting in bed, with eyes closed, monitoring vital signs. 23:00 Reassessment: No changes from previously documented assessment. Patient and/or family jd3 updated on plan of care and expected duration. Pain level reassessed. 23:30 Reassessment: No changes from previously documented assessment. Patient and/or family jd3 updated on plan of care and expected duration. Pain level reassessed. 07/10 00:04 Reassessment: No changes from previously documented assessment. Patient and/or family jd3 updated on plan of care and expected duration. Pain level reassessed. report given to EMS. 00:17 Reassessment: Patient and/or family updated on plan of care and expected duration. Pain jd3 level reassessed. pt reported understanding of need for transfer. Vital Signs: 07/09 16:57 BP 124 / 61; Pulse 75; Resp 28; Temp 98.9(TE); Pulse Ox 92% on R/A; Weight 124.74 kg; jl7 Height 5 ft. 10 in. (177.80 cm); 17:18 BP 130 / 63; Pulse 88; Resp 24; Pulse Ox 96% on 2 lpm NC; Pain 10/10; ed1 18:24 BP 128 / 70; Pulse 83; Resp 19; Pulse Ox 95% on 4 lpm NC; Pain 8/10; ed1 19:59 BP 113 / 67; Pulse 96; Resp 20; Pulse Ox 94% on NC; mt 20:39 BP 114 / 68; Pulse 95; Resp 24; Pulse Ox 94% on NC; mt 21:03 BP 100 / 52; Pulse 98; Resp 26 S; Pulse Ox 94% on 3 lpm NC; jd3 21:25 BP 98 / 57; Pulse 94; Resp 25 S; Pulse Ox 93% on R/A; jd3 21:40 BP 87 / 63; Pulse 95; Resp 23 S; Pulse Ox 95% on R/A; jd3 22:00 BP 94 / 54; Pulse 92; Resp 24 S; Pulse Ox 94% on 3 lpm NC; jd3 22:22 BP 89 / 49; Pulse 94; Resp 22; Pulse Ox 94% on 3 lpm NC; mt 22:30 BP 83 / 50; Pulse 92; Resp 25 S; Pulse Ox 93% on 3 lpm NC; jd3 22:55 BP 98 / 72; Pulse 105; Resp 26 S; Pulse Ox 93% on 3 lpm NC; jd3 22:55 BP 116 / 97; Pulse 111; Resp 16; Pulse Ox 92% on 3 lpm NC; jd3 23:38 BP 117 / 99; Pulse 118; Resp 20; Pulse Ox 95% on 3 lpm NC; mt 07/10 00:04 BP 121 / 78; Pulse 105; Resp 28 S; Pulse Ox 93% on 3 lpm NC; jd3 07/09 16:57 Body Mass Index 39.46 (124.74 kg, 177.80 cm) jl7 ED Course: 07/09 16:44 Patient arrived in ED. rg4 16:44 Ramez Mitchell DO is Private Physician. rg4 16:56 Triage completed. jl7 17:08 Ricardo Brown MD is Attending Physician. tw4 17:17 Nisha Wright LVN is Primary Nurse. ed1 17:21 Patient has correct armband on for positive identification. Placed in gown. Bed in low ed1 position. Call light in reach. Side rails up X2. Adult w/ patient. quality assurance monitor on. Pulse ox on. NIBP on. 17:21 Initial lab(s) drawn, by ED staff, held in ED. Inserted saline lock: 20 gauge in right ed1 antecubital area, using aseptic technique. Blood collected. 17:26 EKG done, by industrial controls technician. reviewed by Ricardo Brown MD. sm3 19:11 Alissa Mcclure MD is Hospitalizing Provider. tw4 19:39 Radiology exam delayed due to Per ER until patient is more stable. nj 19:55 Mark Greenwood RN is Primary Nurse. jd3 19:55 Inserted saline lock: 20 gauge in left antecubital area, using aseptic technique. Blood jd3 collected. 20:21 Arm band placed on. jd3 22:30 Verbal reassurance given. jd3 23:20 XRAY Chest (1 view) In Process Unspecified. EDMS 23:33 Straight cath inserted, using sterile technique, 16 Fr. Patient tolerated well. mt 23:56 Puente cath inserted, using sterile technique, 16 Fr., by tx, balloon inflated, to jd3 gravity drainage. 07/10 00:16 No provider procedures requiring assistance completed. Patient transferred, IV remains jd3 in place. Administered Medications: 07/09 17:35 Drug: morphine 4 mg Route: IVP; Site: right antecubital; hb 17:35 Drug: Zofran 4 mg Route: IVP; Site: right antecubital; hb 18:15 Drug: Ativan 1 mg Route: IVP; Site: right antecubital; hb 19:35 Follow up: Response: No adverse reaction jd3 18:43 Drug: Albuterol - atroVENT (3:1) (2.5 mg - 0.5 mg) 3 ml Route: Nebulizer; ed1 19:35 Follow up: Response: No adverse reaction jd3 19:02 Drug: Rocephin 1 grams Route: IV; Rate: calculated rate; Site: right antecubital; ed1 19:35 Follow up: Response: No adverse reaction jd3 19:35 Follow up: Response: No adverse reaction; IV Status: Completed infusion jd3 19:11 Drug: LevaQUIN 750 mg Volume: 150 ml; Route: IVPB; Infused Over: 90 mins; Site: right ed1 antecubital; 19:35 Follow up: Response: Adverse reaction, Physician notified; IV Status: Order to jd3 discontinue infusion 19:41 Drug: Magnesium Sulfate 2 grams Route: IVPB; Infused Over: 2 mins; Site: right jd3 antecubital; 20:00 Follow up: Response: No adverse reaction; IV Status: Completed infusion jd3 19:58 Drug: Lovenox 100 mg Route: Sub-Q; Site: abdomen; jd3 20:45 Follow up: Response: No adverse reaction jd3 19:59 CANCELLED (order changed): Magnesium Sulfate 1 grams IVPB once over 1 mins; ivp hb 21:05 Drug: Magnesium Sulfate 2 grams Route: IVPB; Infused Over: 1 mins; Site: right fc antecubital; 21:35 Follow up: Response: No adverse reaction; IV Status: Completed infusion jd3 21:20 Drug: NS 0.9% 1000 ml Route: IV; Rate: 1 bolus; Site: left antecubital; jd3 21:55 Follow up: Response: No adverse reaction; IV Status: Completed infusion; IV Intake: jd3 1000ml 21:50 Drug: Lidocaine 50 mg Route: IVP; Site: left antecubital; jd3 22:20 Follow up: Response: No adverse reaction jd3 21:50 Drug: Lidocaine Drip 1 mg/min Route: IV; Rate: calculated rate; Site: left antecubital; jd3 23:50 Follow up: IV Status: Infusion continued upon transfer jd3 22:58 Drug: Phenylephrine 50 mcg/min Route: IV; Rate: calculated rate; Site: right d3 antecubital; 23:51 Follow up: IV Status: Infusion continued upon transfer jd3 23:50 Drug: Lasix 20 mg Route: IVP; Site: left antecubital; jd3 07/10 00:18 Follow up: Response: No adverse reaction jd3 Intake: 07/09 21:55 IV: 1000ml; Total: 1000ml. jd3 Outcome: 19:12 Decision to Hospitalize by Provider. tw4 21:48 ER care complete, transfer ordered by . tw4 07/10 00:16 Transferred by ground EMS to [facility], Transfer form completed. jd3 X-rays sent w/ patient. Note: report given to Nacho WALKER and EMS. Condition: stable Instructed on the need for transfer, Demonstrated understanding of instructions. 00:19 Patient left the ED. jd3 Signatures: Dispatcher [employer] EDMS Kayli Pimentel RN RN Nisha Luo, CARDIAC CATH LAB RADIOLOGY TECHNOLOGIST CARDIAC CATH LAB RADIOLOGY TECHNOLOGIST ed1 July Nava RN Violeta Ly rg4 Daquan Zaman Jahala, RN RN jl7 Tonya Ybarra mt, Jonathon, RN RN jd3 Ricardo Brown MD MD tw4 Lisa Herrera sm3 Corrections: (The following items were deleted from the chart) 07/09 22:02 20:55 Inserted saline lock: 20 gauge in left antecubital area, using aseptic technique. jd3 Blood collected. jd3 22:08 20:20 Reassessment: Patient and/or family updated on plan of care and expected jd3 duration. Pain level reassessed. pt reporting decreased pain sensation. Patient states symptoms have improved. jd3 22:11 21:03 BP 100 / 52; Pulse 98bpm; Resp 26bpm; Spontaneous; Pulse Ox 94% 4 lpm Nasal jd3 Cannula; jd3 22:14 22:12 Response: No adverse reaction jd3 jd3 22:16 19:00 Response: No adverse reaction jd3 jd3 22:16 19:00 Response: No adverse reaction jd3 jd3
[2018-07-09] MEDS ORDERED: Magnesium Sulfate 2gm IVPB 2 G/50 ML BAG IV ONE ×2 (19:48→21:12)
[2018-07-09] MEDS ORDERED: ENOXAPARIN 100 MG/ML SYR SQ ONE (20:06)
[2018-07-09] MEDS ORDERED: ACETAMINOPHEN 650MG/RECT SUPP RECT PRN (21:01)
[2018-07-09] MEDS ORDERED: ACETAMINOPHEN 500 MG TAB PO PRN (21:01)
[2018-07-09] MEDS ORDERED: LIDOCAINE/D5W 2,000 MG/500 ML BAG IV ONE (21:45)
[2018-07-09] MEDS ORDERED: NA CHLORIDE 0.9% 1,000 ML IV SCH (22:00)
[2018-07-09] MEDS ORDERED: Phenylephrine HCl 10 MG/ML 1 ML VIAL ONE (22:57)
[2018-07-09] MEDS ORDERED: NA CHLORIDE 0.9% 250 ML ONE (22:57)
[2018-07-09] MEDS ORDERED: FUROSEMIDE 20 MG/ 2ML VIAL ONE (23:48)
[2018-07-10 00:48] VITALS: TEMP 98.9
[2018-07-10 01:05] VITALS: BP 121/78; O2SAT 93
[2018-07-10] MEDS ORDERED: IPRATROPIUM BROM 0.5MG/2.5ML NEB SCH (02:00)
[2018-07-10] MEDS ORDERED: ALBUTEROL 2.5 MG/3 ML NEB SOL NEB SCH (02:00)
--- NOTE | 2018-07-10 05:50 | EKG ---
Test Date: 2018-07-09 Test Time: 23:04:27 [employer] Research Associate: CHAD MEASUREMENT RESULTS: Intervals: Rate: 112 IN: 160 QRSD: 74 QT: 306 QTc: 417 Carlos: P: 45 IN: 160 QRS: -21 T: 57 INTERPRETIVE STATEMENTS: Sinus tachycardia Anteroseptal infarct, age undetermined Abnormal ECG Compared to ECG 07/09/2018 17:22:37 Sinus rhythm no longer present Fusion complex(es) no longer present Myocardial infarct finding still present Electronically Signed On 07-10-18 10:29:21 INSPECTOR PLUMBING by David Rocha
--- NOTE | 2018-07-10 05:52 | EKG ---
Test Date: 2018-07-09 Test Time: 17:22:37 Fundraising Director: GERMAN MEASUREMENT RESULTS: Intervals: Rate: 90 WI: 172 QRSD: 78 QT: 334 QTc: 408 [place]: P: 45 WI: 172 QRS: -2 T: 25 INTERPRETIVE STATEMENTS: Sinus rhythm with fusion complexes Anterior infarct, age undetermined Abnormal ECG Compared to ECG 05/19/2018 21:56:27 Fusion complex(es) now present Myocardial infarct finding now present Electronically Signed On 07-10-18 05:51:39 SUBSTATION WIREMAN by David Rocha
--- NOTE | 2018-07-10 08:12 | RAD REPORT ---
EXAM DESCRIPTION: Marisol Single View07/09/2018 11:21 pm CLINICAL HISTORY: Chest pain COMPARISON: July 17 FINDINGS: Left lung opacities have mildly worsened. No other change noted. IMPRESSION: Mild worsening in left basilar opacities probably representing pneumonia. Small left ple ural effusion may be present.
[2018-07-10] MEDS ORDERED: ENOXAPARIN 40 MG/0.4 ML SQ SCH (09:00)
== END 2018-07-10 00:19 | disposition short-term general hospital (02) ==
LOC: ER 16:43 → UNDOADMIN 21:03 → ERHOLD 21:03 → ER 07-10 00:19
DX: J15.8 Pneumonia due to other specified bacteria (principal); I47.2 Ventricular tachycardia; I10 Essential (primary) hypertension; I25.2 Old myocardial infarction; Z88.5 Allergy status to narcotic agent; Z85.038 Personal history of other malignant neoplasm of large intestine; Z85.46 Personal history of malignant neoplasm of prostate
CPT/HCPCS: 36415; 51702 ×2; 71045 ×2; 80048; 80076; 83605; 83735 ×2; 83880; 84145; 84484; 85025; 85610; 87040 ×2; 93005 ×2; 94640; 96372; 99285; J0696; J1650; J1940; J2001; J2370; J2405; J3475 ×2; J7030; 96365; 96366; 96367; 96368; 96375

== ENCOUNTER 2019-02-02 19:17 | Emergency (ER) | payer OTHER ==
--- NOTE | 2019-02-02 19:46 | RAD REPORT ---
EXAM DESCRIPTION: CT - Ct Stroke Brain Wo Cont - 02/02/2019 7:37 pm CLINICAL HISTORY: Dizziness COMPARISON: 2009 TECHNIQUE: Computed axial tomography of the head was obtained. All CT scans are performed using dose optimization technique as appropriate and may include automated exposure control or mA/KV adjustment according to patient size. FINDINGS: An intracranial bleed is not seen . The ventricles are normal in caliber. No extra-axial fluid collection is noted. Neuro stimulators are in place. Fluid within the sinuses/ mastoids is not seen. IMPRESSION: No acute intracranial abnormality is seen Dr janay esqueda of the emergency room was notified at 7:27 p.m. p.m. February 02, 2019
[2019-02-02 19:49] LABS: Basophils % 1.3 % (0-1.3); Eosinophils % 6.2 % (0-4.4); Hematocrit 42.2 % (39.6-49.0); Lymphocytes % 14.7 % (15.3-44.8); MPV 8.5 fL (7.6-11.3); Monocytes % 9.8 % (3.3-12.3); RBC Red Blood Cell Count 4.49 M/uL (4.33-5.43)
[2019-02-02 19:53] LABS: Protime INR 1.04
--- NOTE | 2019-02-02 20:01 | RAD REPORT ---
EXAM DESCRIPTION: Marisol Single View02/02/2019 7:52 pm CLINICAL HISTORY: Chest pain COMPARISON: July of 2018 FINDINGS: The lungs appear clear of acute infiltrate. The heart is normal size. A large hiatal hernia. Mild left lower lobe atelectasis
[2019-02-02] MEDS ORDERED: NA CHLORIDE 0.9% 1,000 ML ONE (20:06)
[2019-02-02] MEDS ORDERED: FOLIC ACID 5 MG/ML VIAL ONE (20:07)
--- NOTE | 2019-02-02 20:15 | ER ---
Nurse's Notes [facility] Name: Christian Gonzales III Age: 73 yrs Sex: Male : 1945 Arrival Date: 02/02/2019 Time: 19:23 Bed 2 Private MD: Diagnosis: Cerebral infarction;Aphasia-improving;Obesity, unspecified;Unspecified kidney failure Presentation: 02/02 19:15 Presenting complaint: EMS states: they were toned out for report of pt having stroke bb like symptoms with difficulty speaking, pt's last known well was 02/02/19 1820. Transition of care: patient was not received from another setting of care. An acute neurological deficit is present. Onset of symptoms was February 02, 2019 at 18:20. Risk Assessment: Do you want to hurt yourself or someone else? Patient reports no desire to harm self or others. Initial Sepsis Screen: Does the patient meet any 2 criteria? No. Patient's initial sepsis screen is negative. Does the patient have a suspected source of infection? No. Patient's initial sepsis screen is negative. Care prior to arrival: None. 19:15 Method Of Arrival: EMS: [facility] bb 19:15 Acuity: ANDRES 1 bb 19:20 The patients blood glucose was checked before arriving to the hospital and was found to ea be normal. Triage Assessment: 19:30 The onset of the patients symptoms was February 02, 2019 at 18:20. bb Stroke Activation: Symptom onset < 3 hours Physician: Stroke Attending; Name: ; Notified At: ; Arrived At: Physician: Chief Stroke Resident; Name: ; Notified At: ; Arrived At: Physician: Stroke Resident; Name: ; Notified At: ; Arrived At: Physician: ED Attending; Name: Dr Best; Notified At: 19:15; Arrived At: 19:16 Physician: ED Resident; Name: ; Notified At: ; Arrived At: Historical: - Allergies: 23:06 Demerol; ea - PMHx: 23:06 PVD; Prostate Cancer; Parkinsons; Myocardial infarction; kidney problems; Hypertension; ea cancer - colon and prostate; barett's esophagus; - PSHx: 23:06 deep brain stimulator; Hernia repair; prostetectomy; colon resection; ea - Immunization history:: Adult Immunizations up to date. - Social history:: Smoking status: Patient/guardian denies using tobacco. - Family history:: not pertinent. - Ebola Screening: : No symptoms or risks identified at this time. Screenin:05 Abuse screen: Denies threats or abuse. Nutritional screening: No deficits noted. ea Tuberculosis screening: No symptoms or risk factors identified. Fall Risk IV access (20 points). Ambulatory Aid- Crutches/Cane/Walker (15 pts). Gait- Impaired (20 pts.). Assessment: 19:20 The patient has not been NPO before screening. The patient is alert, and able to follow ea commands. The patient exhibits slurred or garbled speech. The patient is exhibiting difficulty speaking. The patient does not exhibit difficulty understanding words. Drooling noted. 19:20 VAN Scoring: Arm Drift: Patients demonstrates NO arm weakness. Patient is VAN Negative. ea 19:20 The patient failed the bedside swallow screening. The patient will be kept NPO until ea cleared by Speech Therapy or Physician. 19:20 n/a pt not failed bedside swallow study Provider notified of bedside swallow screening ea results: Jose Greene MD. 19:25 General: Appears uncomfortable, Behavior is calm, cooperative. Pain: Denies pain. 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 Speech is slurred, Facial symmetry appears normal, Intact. Cardiovascular: Patient's skin is warm and dry. Respiratory: Airway is patent Respiratory effort is even, unlabored, Respiratory pattern is regular, symmetrical. GI: No signs and/or symptoms were reported involving the gastrointestinal system. : No signs and/or symptoms were reported regarding the genitourinary system. Derm: Skin is pink, warm \T\ dry. 21:50 Reassessment: Patient and/or family updated on plan of care and expected duration. Pain ea level reassessed. Pt alert and oriented x 3. Respirations even and unlabored. Denies pain at this time. Pt speech has some improvement. 22:50 Reassessment: Patient and/or family updated on plan of care and expected duration. Pain ea level reassessed. Patient is alert, oriented x 3, equal unlabored respirations, skin warm/dry/pink. Pt speech has improved significantly. 22:59 T-PA (Activase) Screening: Contraindications: Other: physician discretion. ea 23:03 Reassessment: Report called Den WALKER at [facility]. ea 23:03 Reassessment: Patient and/or family updated on plan of care and expected duration. Pain ea level reassessed. Patient is alert, oriented x 3, equal unlabored respirations, skin warm/dry/pink. Patient states feeling better. Patient states symptoms have improved. 23:50 Reassessment: Patient and/or family updated on plan of care and expected duration. Pain ea level reassessed. Patient is alert, oriented x 3, equal unlabored respirations, skin warm/dry/pink. Pt speech improved. Patient states feeling better. Patient states symptoms have improved. 02/03 00:33 Reassessment: EMS at facility for transport, report given to EMS. ea 00:34 Reassessment: Patient and/or family updated on plan of care and expected duration. Pain ea level reassessed. Pt currently aphasic, unable to form words. Family reports pt was asleep for approximately 20 minutes and was normal prior to sleeping. Provider notified. 00:54 Reassessment: Patient and/or family updated on plan of care and expected duration. Pain ea level reassessed. Patient is alert, oriented x 3, equal unlabored respirations, skin warm/dry/pink. Pt speech improved, TPA medication held per neurologist at [facility] Patient states symptoms have improved. 00:58 Reassessment: Patient and/or family updated on plan of care and expected duration. Pain ea level reassessed. Patient is alert, oriented x 3, equal unlabored respirations, skin warm/dry/pink. Pt symptoms improved. Pt speech has improved. Pt transferred via stretcher per EMS, tolerating well. Vital Signs: 02/02 19:30 BP 147 / 85; Pulse 67; Resp 97 S; Temp 97.2(A); Pulse Ox 97% on R/A; Weight 111.13 kg bb (R); Height 5 ft. 11 in. (180.34 cm) (R); 20:45 BP 147 / 98; Pulse 65; Resp 18; Pulse Ox 100% ; ea 21:00 BP 155 / 92; Pulse 63; Resp 18; Pulse Ox 98% ; ea 22:45 BP 155 / 81; Pulse 71; Resp 18; Pulse Ox 98% ; ea 23:00 BP 128 / 67; Pulse 71; Resp 18; Pulse Ox 97% on R/A; ea 02/03 00:50 BP 132 / 80; Pulse 69; Resp 19; Temp 98; Pulse Ox 97% on R/A; ea 02/02 19:30 Body Mass Index 34.17 (111.13 kg, 180.34 cm) bb NIH Stroke Scale Scores: 02/02 19:20 NIHSS Score: 2 ea 20:03 NIHSS Score: 2 trevor 23:00 NIHSS Score: 0 ea 02/03 00:00 NIHSS Score: 0 ea 00:34 NIHSS Score: 4 ea 00:50 NIHSS Score: 2 ea ED Course: 02/02 19:20 Arm band placed on Patient placed in an exam room, on a stretcher, on clinical research monitor, bb on pulse oximetry. Family accompanied patient. 19:20 Patient has correct armband on for positive identification. Placed in gown. Bed in low ea position. Call light in reach. Side rails up X2. Adult w/ patient. 19:23 Patient arrived in ED. ds1 19:25 Jose Greene MD is Attending Physician. trevor 19:33 Inserted saline lock: 20 gauge in left forearm, using aseptic technique. Blood jd3 collected. 19:38 CT Stroke Brain w/o Contrast In Process Unspecified. EDMS 19:41 Mojgan Li, RN is Primary Nurse. ea 19:48 X-ray completed. Portable x-ray completed in exam room. Patient tolerated procedure mh1 well. 19:54 Stroke CXR 1 View In Process Unspecified. EDMS 19:54 Triage completed. bb 20:22 Radiology exam delayed due to lab results not completed at this time. (BUN/Creatinine). mw3 21:13 Patient transferred, IV remains in place. ea 22:21 CT Head Angio In Process Unspecified. EDMS 22:21 Neck Angio In Process Unspecified. EDMS 23:04 No provider procedures requiring assistance completed. ea Administered Medications: 19:50 Drug: NS 0.9% 1000 ml Route: IV; Rate: 1 bolus; Site: left antecubital; ea 21:00 Follow up: Response: No adverse reaction; IV Status: Completed infusion; IV Intake: ea 1000ml 19:50 Drug: foLIC Acid 1 mg Route: IVPB; Site: left antecubital; ea 21:00 Follow up: Response: No adverse reaction; IV Status: Completed infusion ea 20:12 CANCELLED (Duplicate Order): ACTIvase IV Thrombolytics at calculated rate Per protocol [facility] over 60 mins; 0.9 mg/kg IV (Max: 90 mg); give 10% of the total dose as an IV bolus over 1 minute, then give the remaining 90% as an IV infusion over 60 minutes 20:25 Drug: Pepcid 20 mg Route: IVP; Site: left antecubital; ea 21:00 Follow up: Response: No adverse reaction ea 20:54 Not Given (pt NPO): Aspirin 162 mg PO once ea 02/03 00:31 Not Given (Physician Discretion): Mucomyst - Acetylcysteine 600 mg PO once ea 03:25 CANCELLED (Physician Discretion): ACTIvase IV Thrombolytics at calculated rate Per protocol over 60 mins; 0.9 mg/kg IV (Max: 90 mg); give 10% of the total dose as an IV bolus over 1 minute, then give the remaining 90% as an IV infusion over 60 minutes Point of Care Testing: Blood Glucose: 02/02 19:30 Blood Glucose: 85 mg/dL; bb Ranges: Intake: 21:00 IV: 1000ml; Total: 1000ml. ea Outcome: 20:14 ER care complete, transfer ordered by . [facility] 21:14 Instructed on the need for transfer. ea 02/03 00:33 Transferred by ground EMS to [facility], Transfer form completed. ea Condition: stable 01:03 Patient left the ED. NIH Stroke Scale - NIH Stroke Score Date: 02/02/2019 Time: 19:20 Total Score = 2 1a. Level of Consciousness (LOC) - 0(Alert) 1b. Level of Consciousness (LOC) (Year \T\ Age) - 0(Both) 1c. LOC Commands (Open \T\ Closes Eyes/[employer] Cook) - 0(Both) 2. Best Gaze (Lateral Gaze Paresis) - 0(Normal) 3. Visual Field Loss - 0(No visual loss) 4. Facial Palsy - 0(Normal) 5a. Left Arm: Motor (10-second hold) - 0(No drift) 5b. Right Arm: Motor (10-second hold) - 0(No drift) 6a. Left Leg: Motor (5-second hold - always test supine) - 0(No drift) 6b. Right Leg: Motor (5-second hold - always test supine) - 0(No drift) 7. Limb Ataxia (finger/nose \T\ heel/vick - test with eyes open) - 0(Absent) 8. Sensory Loss (pinprick arms/legs/face) - 0(Normal) 9. Best Language: Aphasia (description/naming/reading) - 1(Mild to moderate aphasia) 10. Dysarthria (speech clarity - read or repeat words) - 1(Mild to Moderate) 11. Extinction and Inattention (visual/tactile/auditory/spatial/personal) - 0(No abnormality) Initials: NIH Stroke Scale - NIH Stroke Score Date: 02/02/2019 Time: 20:03 Total Score = 2 1a. Level of Consciousness (LOC) - 0(Alert) 1b. Level of Consciousness (LOC) (Year \T\ Age) - 0(Both) 1c. LOC Commands (Open \T\ Closes Eyes/[employer] Cook) - 0(Both) 2. Best Gaze (Lateral Gaze Paresis) - 0(Normal) 3. Visual Field Loss - 0(No visual loss) 4. Facial Palsy - 0(Normal) 5a. Left Arm: Motor (10-second hold) - 0(No drift) 5b. Right Arm: Motor (10-second hold) - 0(No drift) 6a. Left Leg: Motor (5-second hold - always test supine) - 0(No drift) 6b. Right Leg: Motor (5-second hold - always test supine) - 0(No drift) 7. Limb Ataxia (finger/nose \T\ heel/vick - test with eyes open) - 0(Absent) 8. Sensory Loss (pinprick arms/legs/face) - 0(Normal) 9. Best Language: Aphasia (description/naming/reading) - 1(Mild to moderate aphasia) 10. Dysarthria (speech clarity - read or repeat words) - 1(Mild to Moderate) 11. Extinction and Inattention (visual/tactile/auditory/spatial/personal) - 0(No abnormality) Initials: [facility] NIH Stroke Scale - NIH Stroke Score Date: 02/02/2019 Time: 23:00 Total Score = 0 1a. Level of Consciousness (LOC) - 0(Alert) 1b. Level of Consciousness (LOC) (Year \T\ Age) - 0(Both) 1c. LOC Commands (Open \T\ Closes Eyes/[employer] Cook) - 0(Both) 2. Best Gaze (Lateral Gaze Paresis) - 0(Normal) 3. Visual Field Loss - 0(No visual loss) 4. Facial Palsy - 0(Normal) 5a. Left Arm: Motor (10-second hold) - 0(No drift) 5b. Right Arm: Motor (10-second hold) - 0(No drift) 6a. Left Leg: Motor (5-second hold - always test supine) - 0(No drift) 6b. Right Leg: Motor (5-second hold - always test supine) - 0(No drift) 7. Limb Ataxia (finger/nose \T\ heel/vick - test with eyes open) - 0(Absent) 8. Sensory Loss (pinprick arms/legs/face) - 0(Normal) 9. Best Language: Aphasia (description/naming/reading) - 0(No aphasia) 10. Dysarthria (speech clarity - read or repeat words) - 0(Normal) 11. Extinction and Inattention (visual/tactile/auditory/spatial/personal) - 0(No abnormality) Initials: ea NIH Stroke Scale - NIH Stroke Score Date: 02/03/2019 Time: 00:00 Total Score = 0 1a. Level of Consciousness (LOC) - 0(Alert) 1b. Level of Consciousness (LOC) (Year \T\ Age) - 0(Both) 1c. LOC Commands (Open \T\ Closes Eyes/[employer] Cook) - 0(Both) 2. Best Gaze (Lateral Gaze Paresis) - 0(Normal) 3. Visual Field Loss - 0(No visual loss) 4. Facial Palsy - 0(Normal) 5a. Left Arm: Motor (10-second hold) - 0(No drift) 5b. Right Arm: Motor (10-second hold) - 0(No drift) 6a. Left Leg: Motor (5-second hold - always test supine) - 0(No drift) 6b. Right Leg: Motor (5-second hold - always test supine) - 0(No drift) 7. Limb Ataxia (finger/nose \T\ heel/vick - test with eyes open) - 0(Absent) 8. Sensory Loss (pinprick arms/legs/face) - 0(Normal) 9. Best Language: Aphasia (description/naming/reading) - 0(No aphasia) 10. Dysarthria (speech clarity - read or repeat words) - 0(Normal) 11. Extinction and Inattention (visual/tactile/auditory/spatial/personal) - 0(No abnormality) Initials: NIH Stroke Scale - NIH Stroke Score Date: 02/03/2019 Time: 00:34 Total Score = 4 1a. Level of Consciousness (LOC) - 0(Alert) 1b. Level of Consciousness (LOC) (Year \T\ Age) - 0(Both) 1c. LOC Commands (Open \T\ Closes Eyes/S[employer] Cook) - 0(Both) 2. Best Gaze (Lateral Gaze Paresis) - 0(Normal) 3. Visual Field Loss - 0(No visual loss) 4. Facial Palsy - 0(Normal) 5a. Left Arm: Motor (10-second hold) - 0(No drift) 5b. Right Arm: Motor (10-second hold) - 0(No drift) 6a. Left Leg: Motor (5-second hold - always test supine) - 0(No drift) 6b. Right Leg: Motor (5-second hold - always test supine) - 0(No drift) 7. Limb Ataxia (finger/nose \T\ heel/vick - test with eyes open) - 0(Absent) 8. Sensory Loss (pinprick arms/legs/face) - 0(Normal) 9. Best Language: Aphasia (description/naming/reading) - 2(Severe aphasia) 10. Dysarthria (speech clarity - read or repeat words) - 2(Severe) 11. Extinction and Inattention (visual/tactile/auditory/spatial/personal) - 0(No abnormality) Initials: NIH Stroke Scale - NIH Stroke Score Date: 02/03/2019 Time: 00:50 Total Score = 2 1a. Level of Consciousness (LOC) - 0(Alert) 1b. Level of Consciousness (LOC) (Year \T\ Age) - 0(Both) 1c. LOC Commands (Open \T\ Closes Eyes/[employer] Cook) - 0(Both) 2. Best Gaze (Lateral Gaze Paresis) - 0(Normal) 3. Visual Field Loss - 0(No visual loss) 4. Facial Palsy - 0(Normal) 5a. Left Arm: Motor (10-second hold) - 0(No drift) 5b. Right Arm: Motor (10-second hold) - 0(No drift) 6a. Left Leg: Motor (5-second hold - always test supine) - 0(No drift) 6b. Right Leg: Motor (5-second hold - always test supine) - 0(No drift) 7. Limb Ataxia (finger/nose \T\ heel/vick - test with eyes open) - 0(Absent) 8. Sensory Loss (pinprick arms/legs/face) - 0(Normal) 9. Best Language: Aphasia (description/naming/reading) - 1(Mild to moderate aphasia) 10. Dysarthria (speech clarity - read or repeat words) - 1(Mild to Moderate) 11. Extinction and Inattention (visual/tactile/auditory/spatial/personal) - 0(No abnormality) Initials: ea Signatures: Dispatcher [employer] Jose Brand MD MD cha Harvey, Martha 1 Sherron Garrido ds1 Christiane Dorsey RN RN bb Antunez, Elena, RN RN ea Davies, Jonathon, RN RN jd3 Willis, Michelle mw3
--- NOTE | 2019-02-02 20:15 | EDPHYS ---
Physician Documentation [facility] Name: Christian Gonzales III Age: 73 yrs Sex: Male : 1945 Arrival Date: 02/02/2019 Time: 19:23 Bed 2 Private MD: ED Physician Jose Greene HPI: 02/02 20:01 This 73 yrs old Male presents to ER via EMS with complaints of S/S of trevor Possible Stroke. 20:01 The patient's problem is reported as a facial droop, on left, paresthesias, dysphasia. trevor Onset: The symptoms/episode began/occurred 2.5 hour(s) ago. Duration: The episode is continuous. Context: the episode(s) was witnessed, by family. The symptoms are alleviated by nothing. The symptoms are aggravated by nothing. Associated signs and symptoms: The patient has no apparent associated signs or symptoms. Severity of symptoms: At their worst the symptoms were mild moderate in the emergency department the symptoms are unchanged. Patient's baseline: Neuro: alert and fully oriented. The patient has not experienced similar symptoms in the past. Historical: - Allergies: 23:06 Demerol; ea - PMHx: 23:06 PVD; Prostate Cancer; Parkinsons; Myocardial infarction; kidney problems; Hypertension; ea cancer - colon and prostate; barett's esophagus; - PSHx: 23:06 deep brain stimulator; Hernia repair; prostetectomy; colon resection; ea - Immunization history:: Adult Immunizations up to date. - Social history:: Smoking status: Patient/guardian denies using tobacco. - Family history:: not pertinent. - Ebola Screening: : No symptoms or risks identified at this time. ROS: 20:01 Constitutional: Negative for fever, chills, and weight loss, Eyes: Negative for injury, trevor pain, redness, and discharge, ENT: Negative for injury, pain, and discharge, Neck: Negative for injury, pain, and swelling, Cardiovascular: Negative for chest pain, palpitations, and edema, Respiratory: Negative for shortness of breath, cough, wheezing, and pleuritic chest pain, Abdomen/GI: Negative for abdominal pain, nausea, vomiting, diarrhea, and constipation, Back: Negative for injury and pain, : Negative for injury, bleeding, discharge, and swelling, MS/Extremity: Negative for injury and deformity, Skin: Negative for injury, rash, and discoloration, Psych: Negative for depression, anxiety, suicide ideation, homicidal ideation, and hallucinations, Allergy/Immunology: Negative for hives, rash, and allergies, Endocrine: Negative for neck swelling, polydipsia, polyuria, polyphagia, and marked weight changes, Hematologic/Lymphatic: Negative for swollen nodes, abnormal bleeding, and unusual bruising. 20:01 Neuro: Positive for dizziness, speech changes, weakness, of the face. Exam: 20:01 Radiologist reports: neg, no acute trevor 20:01 Constitutional: This is a well developed, well nourished patient who is awake, alert, and in no acute distress. Head/Face: Normocephalic, atraumatic. Eyes: Pupils equal round and reactive to light, extra-ocular motions intact. Lids and lashes normal. Conjunctiva and sclera are non-icteric and not injected. Cornea within normal limits. Periorbital areas with no swelling, redness, or edema. ENT: Nares patent. No nasal discharge, no septal abnormalities noted. Tympanic membranes are normal and external auditory canals are clear. Oropharynx with no redness, swelling, or masses, exudates, or evidence of obstruction, uvula midline. Mucous membranes moist. Neck: Trachea midline, no thyromegaly or masses palpated, and no cervical lymphadenopathy. Supple, full range of motion without nuchal rigidity, or vertebral point tenderness. No Meningismus. Chest/axilla: Normal chest wall appearance and motion. Nontender with no deformity. No lesions are appreciated. Cardiovascular: Regular rate and rhythm with a normal S1 and S2. No gallops, murmurs, or rubs. Normal PMI, no JVD. No pulse deficits. Respiratory: Lungs have equal breath sounds bilaterally, clear to auscultation and percussion. No rales, rhonchi or wheezes noted. No increased work of breathing, no retractions or nasal flaring. Abdomen/GI: Soft, non-tender, with normal bowel sounds. No distension or tympany. No guarding or rebound. No evidence of tenderness throughout. Back: No spinal tenderness. No costovertebral tenderness. Full range of motion. Male : Normal genitalia with no discharge or lesions. Skin: Warm, dry with normal turgor. Normal color with no rashes, no lesions, and no evidence of cellulitis. MS/ Extremity: Pulses equal, no cyanosis. Neurovascular intact. Full, normal range of motion. Psych: Awake, alert, with orientation to person, place and time. Behavior, mood, and affect are within normal limits. 20:01 Neuro: Orientation: is normal, appropriate for stated age, no acute changes, Mentation: is normal, appropriate for stated age, no acute changes, Memory: is normal, appropriate for stated age, no acute changes, Cranial nerves: grossly normal, is grossly normal based on the patient's age, no acute changes, Cerebellar function: is grossly normal, is grossly normal based on the patient's age, no acute changes, Motor: is normal, is grossly normal based on the patient's age, no acute changes, Sensation: is normal, no obvious gross deficits, appropriate no acute changes, Gait: not tested. Deep tendon reflexes are 2+ (normal) in the bilateral brachioradialis, bicep, tricep and patellar and Achilles tendons, seizure activity, is not displayed by the patient. 02/03 00:40 Neuro: at 1247am upon awaking from a 30 min nap. pt now asphasia. trevor Vital Signs: 02/02 19:30 BP 147 / 85; Pulse 67; Resp 97 S; Temp 97.2(A); Pulse Ox 97% on R/A; Weight 111.13 kg bb (R); Height 5 ft. 11 in. (180.34 cm) (R); 20:45 BP 147 / 98; Pulse 65; Resp 18; Pulse Ox 100% ; ea 21:00 BP 155 / 92; Pulse 63; Resp 18; Pulse Ox 98% ; ea 22:45 BP 155 / 81; Pulse 71; Resp 18; Pulse Ox 98% ; ea 23:00 BP 128 / 67; Pulse 71; Resp 18; Pulse Ox 97% on R/A; ea 02/03 00:50 BP 132 / 80; Pulse 69; Resp 19; Temp 98; Pulse Ox 97% on R/A; ea 02/02 19:30 Body Mass Index 34.17 (111.13 kg, 180.34 cm) bb NIH Stroke Scale Scores: 02/02 19:20 NIHSS Score: 2 ea 20:03 NIHSS Score: 2 trevor 23:00 NIHSS Score: 0 ea 02/03 00:00 NIHSS Score: 0 ea 00:34 NIHSS Score: 4 ea 00:50 NIHSS Score: 2 ea MDM: 02/02 19:25 Patient medically screened. [facility] 20:04 Data reviewed: vital signs, nurses notes, EMS record, EKG, radiologic studies, CT scan, trevor plain films. 20:17 ED course: dr baum said no tpa, ctangio head and neckcall with results. [facility] 02/03 00:48 ED course: no tpa, per neurologist, send to [facility], no change in plan. [facility] 02/02 19:27 Order name: Troponin (emerg Dept Use Only); Complete Time: 21:22 [facility] 02/02 19:27 Order name: Ckmb; Complete Time: 21:22 [facility] 02/02 19:27 Order name: CPK; Complete Time: 21:22 [facility] 02/02 19:27 Order name: Magnesium; Complete Time: 21:22 [facility] 02/02 19:27 Order name: Basic Metabolic Panel; Complete Time: 21:22 [facility] 02/02 19:27 Order name: CBC with Diff; Complete Time: 20:14 [facility] 02/02 19:27 Order name: Protime (+inr); Complete Time: 20:14 [facility] 02/02 19:27 Order name: Ptt, Activated; Complete Time: 20:14 [facility] 02/02 19:27 Order name: CT Stroke Brain w/o Contrast; Complete Time: 20:14 [facility] 02/02 19:27 Order name: Stroke CXR 1 View; Complete Time: 20:14 [facility] 02/02 20:15 Order name: CT Head Angio [facility] 02/02 21:20 Order name: Neck Angio [facility] 02/02 23:51 Order name: Urine Dipstick--Ancillary (enter results); Complete Time: 00:39 [facility] 02/02 19:27 Order name: EKG; Complete Time: 19:29 [facility] 02/02 19:27 Order name: Accucheck; Complete Time: 19:48 [facility] 02/02 19:27 Order name: Cardiac monitoring; Complete Time: 19:54 [facility] 02/02 19:27 Order name: EKG - Nurse/Tech; Complete Time: 19:48 [facility] 02/02 19:27 Order name: IV Saline Lock; Complete Time: 19:48 [facility] 02/02 19:27 Order name: Labs collected and sent; Complete Time: 20:27 [facility] 02/02 19:27 Order name: NPO; Complete Time: 19:48 [facility] 02/02 19:27 Order name: O2 Per Protocol; Complete Time: 20:27 [facility] 02/02 19:27 Order name: O2 Sat Monitoring; Complete Time: 20:27 [facility] 02/02 19:27 Order name: Stroke Swallow Screen; Complete Time: 20:27 [facility] Administered Medications: 02/02 19:50 Drug: NS 0.9% 1000 ml Route: IV; Rate: 1 bolus; Site: left antecubital; ea 21:00 Follow up: Response: No adverse reaction; IV Status: Completed infusion; IV Intake: ea 1000ml 19:50 Drug: foLIC Acid 1 mg Route: IVPB; Site: left antecubital; ea 21:00 Follow up: Response: No adverse reaction; IV Status: Completed infusion ea 20:12 CANCELLED (Duplicate Order): ACTIvase IV Thrombolytics at calculated rate Per protocol [facility] over 60 mins; 0.9 mg/kg IV (Max: 90 mg); give 10% of the total dose as an IV bolus over 1 minute, then give the remaining 90% as an IV infusion over 60 minutes 20:25 Drug: Pepcid 20 mg Route: IVP; Site: left antecubital; ea 21:00 Follow up: Response: No adverse reaction ea 20:54 Not Given (pt NPO): Aspirin 162 mg PO once ea 02/03 00:31 Not Given (Physician Discretion): Mucomyst - Acetylcysteine 600 mg PO once ea 03:25 CANCELLED (Physician Discretion): ACTIvase IV Thrombolytics at calculated rate Per protocol over 60 mins; 0.9 mg/kg IV (Max: 90 mg); give 10% of the total dose as an IV bolus over 1 minute, then give the remaining 90% as an IV infusion over 60 minutes Point of Care Testing: Blood Glucose: 02/02 19:30 Blood Glucose: 85 mg/dL; bb Ranges: Critical Glucose Levels:Adult <50 mg/dl or >400 mg/dl <40 mg/dl or >180 mg/dl Disposition: 02/02/19 20:14 Transfer ordered to [facility]. Diagnosis are Cerebral infarction, Aphasia - improving, Obesity, unspecified, Unspecified kidney failure. - Reason for transfer: Higher level of care. - Accepting physician is to dago benjamin. - Condition is Stable. - Problem is new. - Symptoms have improved. NIH Stroke Scale - NIH Stroke Score Date: 02/02/2019 Time: 19:20 Total Score = 2 1a. Level of Consciousness (LOC) - 0(Alert) 1b. Level of Consciousness (LOC) (Year \T\ Age) - 0(Both) 1c. LOC Commands (Open \T\ Closes Eyes/Grab Operator) - 0(Both) 2. Best Gaze (Lateral Gaze Paresis) - 0(Normal) 3. Visual Field Loss - 0(No visual loss) 4. Facial Palsy - 0(Normal) 5a. Left Arm: Motor (10-second hold) - 0(No drift) 5b. Right Arm: Motor (10-second hold) - 0(No drift) 6a. Left Leg: Motor (5-second hold - always test supine) - 0(No drift) 6b. Right Leg: Motor (5-second hold - always test supine) - 0(No drift) 7. Limb Ataxia (finger/nose \T\ heel/vick - test with eyes open) - 0(Absent) 8. Sensory Loss (pinprick arms/legs/face) - 0(Normal) 9. Best Language: Aphasia (description/naming/reading) - 1(Mild to moderate aphasia) 10. Dysarthria (speech clarity - read or repeat words) - 1(Mild to Moderate) 11. Extinction and Inattention (visual/tactile/auditory/spatial/personal) - 0(No abnormality) Initials: NIH Stroke Scale - NIH Stroke Score Date: 02/02/2019 Time: 20:03 Total Score = 2 1a. Level of Consciousness (LOC) - 0(Alert) 1b. Level of Consciousness (LOC) (Year \T\ Age) - 0(Both) 1c. LOC Commands (Open \T\ Closes Eyes/Grab Operator) - 0(Both) 2. Best Gaze (Lateral Gaze Paresis) - 0(Normal) 3. Visual Field Loss - 0(No visual loss) 4. Facial Palsy - 0(Normal) 5a. Left Arm: Motor (10-second hold) - 0(No drift) 5b. Right Arm: Motor (10-second hold) - 0(No drift) 6a. Left Leg: Motor (5-second hold - always test supine) - 0(No drift) 6b. Right Leg: Motor (5-second hold - always test supine) - 0(No drift) 7. Limb Ataxia (finger/nose \T\ heel/vick - test with eyes open) - 0(Absent) 8. Sensory Loss (pinprick arms/legs/face) - 0(Normal) 9. Best Language: Aphasia (description/naming/reading) - 1(Mild to moderate aphasia) 10. Dysarthria (speech clarity - read or repeat words) - 1(Mild to Moderate) 11. Extinction and Inattention (visual/tactile/auditory/spatial/personal) - 0(No abnormality) Initials: [facility] NIH Stroke Scale - NIH Stroke Score Date: 02/02/2019 Time: 23:00 Total Score = 0 1a. Level of Consciousness (LOC) - 0(Alert) 1b. Level of Consciousness (LOC) (Year \T\ Age) - 0(Both) 1c. LOC Commands (Open \T\ Closes Eyes/Grab Operator) - 0(Both) 2. Best Gaze (Lateral Gaze Paresis) - 0(Normal) 3. Visual Field Loss - 0(No visual loss) 4. Facial Palsy - 0(Normal) 5a. Left Arm: Motor (10-second hold) - 0(No drift) 5b. Right Arm: Motor (10-second hold) - 0(No drift) 6a. Left Leg: Motor (5-second hold - always test supine) - 0(No drift) 6b. Right Leg: Motor (5-second hold - always test supine) - 0(No drift) 7. Limb Ataxia (finger/nose \T\ heel/vick - test with eyes open) - 0(Absent) 8. Sensory Loss (pinprick arms/legs/face) - 0(Normal) 9. Best Language: Aphasia (description/naming/reading) - 0(No aphasia) 10. Dysarthria (speech clarity - read or repeat words) - 0(Normal) 11. Extinction and Inattention (visual/tactile/auditory/spatial/personal) - 0(No abnormality) Initials: NIH Stroke Scale - NIH Stroke Score Date: 02/03/2019 Time: 00:00 Total Score = 0 1a. Level of Consciousness (LOC) - 0(Alert) 1b. Level of Consciousness (LOC) (Year \T\ Age) - 0(Both) 1c. LOC Commands (Open \T\ Closes Eyes/Grab Operator) - 0(Both) 2. Best Gaze (Lateral Gaze Paresis) - 0(Normal) 3. Visual Field Loss - 0(No visual loss) 4. Facial Palsy - 0(Normal) 5a. Left Arm: Motor (10-second hold) - 0(No drift) 5b. Right Arm: Motor (10-second hold) - 0(No drift) 6a. Left Leg: Motor (5-second hold - always test supine) - 0(No drift) 6b. Right Leg: Motor (5-second hold - always test supine) - 0(No drift) 7. Limb Ataxia (finger/nose \T\ heel/vick - test with eyes open) - 0(Absent) 8. Sensory Loss (pinprick arms/legs/face) - 0(Normal) 9. Best Language: Aphasia (description/naming/reading) - 0(No aphasia) 10. Dysarthria (speech clarity - read or repeat words) - 0(Normal) 11. Extinction and Inattention (visual/tactile/auditory/spatial/personal) - 0(No abnormality) Initials: NIH Stroke Scale - NIH Stroke Score Date: 02/03/2019 Time: 00:34 Total Score = 4 1a. Level of Consciousness (LOC) - 0(Alert) 1b. Level of Consciousness (LOC) (Year \T\ Age) - 0(Both) 1c. LOC Commands (Open \T\ Closes Eyes/Grab Operator) - 0(Both) 2. Best Gaze (Lateral Gaze Paresis) - 0(Normal) 3. Visual Field Loss - 0(No visual loss) 4. Facial Palsy - 0(Normal) 5a. Left Arm: Motor (10-second hold) - 0(No drift) 5b. Right Arm: Motor (10-second hold) - 0(No drift) 6a. Left Leg: Motor (5-second hold - always test supine) - 0(No drift) 6b. Right Leg: Motor (5-second hold - always test supine) - 0(No drift) 7. Limb Ataxia (finger/nose \T\ heel/vick - test with eyes open) - 0(Absent) 8. Sensory Loss (pinprick arms/legs/face) - 0(Normal) 9. Best Language: Aphasia (description/naming/reading) - 2(Severe aphasia) 10. Dysarthria (speech clarity - read or repeat words) - 2(Severe) 11. Extinction and Inattention (visual/tactile/auditory/spatial/personal) - 0(No abnormality) Initials: christina NIH Stroke Scale - NIH Stroke Score Date: 02/03/2019 Time: 00:50 Total Score = 2 1a. Level of Consciousness (LOC) - 0(Alert) 1b. Level of Consciousness (LOC) (Year \T\ Age) - 0(Both) 1c. LOC Commands (Open \T\ Closes Eyes/Grab Operator) - 0(Both) 2. Best Gaze (Lateral Gaze Paresis) - 0(Normal) 3. Visual Field Loss - 0(No visual loss) 4. Facial Palsy - 0(Normal) 5a. Left Arm: Motor (10-second hold) - 0(No drift) 5b. Right Arm: Motor (10-second hold) - 0(No drift) 6a. Left Leg: Motor (5-second hold - always test supine) - 0(No drift) 6b. Right Leg: Motor (5-second hold - always test supine) - 0(No drift) 7. Limb Ataxia (finger/nose \T\ heel/vick - test with eyes open) - 0(Absent) 8. Sensory Loss (pinprick arms/legs/face) - 0(Normal) 9. Best Language: Aphasia (description/naming/reading) - 1(Mild to moderate aphasia) 10. Dysarthria (speech clarity - read or repeat words) - 1(Mild to Moderate) 11. Extinction and Inattention (visual/tactile/auditory/spatial/personal) - 0(No abnormality) Initials: ea Signatures: Dispatcher [employer] EDPR Jose Greene MD MD cha Ballard, Brenda, RN RN Mojgan Palma RN RN ea Corrections: (The following items were deleted from the chart) 20:12 20:01 ACTIvase IV Thrombolytics at calculated rate Per protocol over 60 mins; trevor 0.9 mg/kg IV (Max: 90 mg); give 10% of the total dose as an IV bolus over 1 minute, then give the remaining 90% as an IV infusion over 60 minutes ordered. trevor 21:51 20:14 02/02/2019 20:14 Transfer ordered to [facility]. trevor Diagnosis is Cerebral infarction; Aphasia - improving. Reason for transfer: Higher level of care. Accepting physician is to dago benajmin. Condition is Stable. Problem is new. Symptoms have improved. trevor 02/03 01:03 02/02 21:51 02/02/2019 20:14 Transfer ordered to [facility]. Diagnosis is Cerebral infarction; Aphasia - improving; Obesity, unspecified; Unspecified kidney failure. Reason for transfer: Higher level of care. Accepting physician is to dago benjamin. Condition is Stable. Problem is new. Symptoms have improved. trevor
[2019-02-02] MEDS ORDERED: ALTEPLASE 100 ML IV ONE (20:17)
[2019-02-02] MEDS ORDERED: NA CHLORIDE 0.9% 50 ML IV ONE (20:17)
[2019-02-02] MEDS ORDERED: FAMOTIDINE 20 MG/2 ML VIAL IV ONE (20:39)
[2019-02-02 21:10] LABS: BUN Blood Urea Nitrogen 32 mg/dL (7-18); Bicarbonate 26 mmol/L (21-32); CKMB Creatine Kinase MB 2.2 ng/mL (0.3-3.6); Creatine Phosphokinase 74 U/L (39-308); Glucose Level 85 mg/dL (74-106); Magnesium 2.3 mg/dL (1.8-2.4); Potassium 4.7 mmol/L (3.5-5.1); Sodium Level 141 mmol/L (136-145); Troponin (Emerg Dept Use Only) < 0.02 ng/mL (0.0-0.045)
[2019-02-02] MEDS ORDERED: ACETYLCYST 6,000 MG/30 ML VIAL ONE (21:41)
[2019-02-02 23:56] LABS: Urine Blood TRACE (NEG); Urine Glucose NEGATIVE (NEG); Urine Protein NEGATIVE (NEG); Urine pH 5.5 (5.0-7.0)
[2019-02-03 03:11] VITALS: O2SAT 97
[2019-02-03 03:13] VITALS: BP 132/80; TEMP 98
--- NOTE | 2019-02-03 09:08 | EKG ---
Test Date: 2019-02-02 Test Time: 19:39:14 Veneer Matcher: ROLAND MEASUREMENT RESULTS: Intervals: Rate: 63 MN: 196 QRSD: 80 QT: 426 QTc: 435 [place]: P: 36 MN: 196 QRS: 27 T: 63 INTERPRETIVE STATEMENTS: Normal sinus rhythm Low voltage QRS Borderline ECG Compared to ECG 07/09/2018 23:04:27 Low QRS voltage now present Sinus tachycardia no longer present Myocardial infarct finding no longer present Electronically Signed On 02-03-19 09:07:30 CDT by David Rocha
--- NOTE | 2019-02-03 10:32 | RAD REPORT ---
EXAM DESCRIPTION: CT - Head angio - 02/02/2019 10:52 pm CLINICAL HISTORY: 73 years, Male, Aphasia;Slurred speech COMPARISON: None. TECHNIQUE: Axial CTA images of the head and neck obtained following the uncomplicated intravenous ad ministration of iodinated contrast. 3-D/MIP reformatted images available. Intracranial evaluation is somewhat suboptimal due to venous contamination. Motion artifact with the CTA of the neck. DLP: 477.6 mGycm FINDINGS: CTA head: In the anterior circulation, the intracranial internal carotid arteries have normal course and calibe r. The internal carotid arteries bifurcate into widely patent A1 and M1 segments of the anterior and middle cerebral arteries respectively. No evidence of flow-limiting stenosis, aneurysm, occlusion, or dissection in the anterior circulation. The anterior communicating artery is patent. Mild calcified nonflow-limiting atherosclerotic plaque paraclinoid internal carotid arteries. In the posterior circulation, the intracranial vertebral arteries combine to form a widely patent bas ilar artery. The basilar artery bifurcates into widely patent P1 segments of the posterior cerebral a rtery. No evidence of stenosis, aneurysm, occlusion, or dissection in the posterior circulation. No definite acute intracranial abnormality identified. Evaluated for acute intracranial hemorrhage is suboptimal due to contrast administration. No acute abnormality of the osseous calvarium. Paranasal sinuses and mastoid air cells are well aerated. Bilateral deep brain stimulators identified. CTA NECK: The aortic arch has normal anatomic configuration. The origin of the great vessels are widely patent. The right common carotid artery is widely patent and bifurcates into widely patent internal and exter nal carotid arteries. 0% stenosis by NASCET criteria. No evidence of occlusion or dissection. Mild no nflow limiting atherosclerotic plaque at the carotid bulb. The left common carotid artery is widely patent and bifurcates into widely patent internal and instrument/control technician al carotid arteries. 0% stenosis by NASCET criteria. No evidence of occlusion or dissection. Mild non flow limiting atherosclerotic plaque at the carotid bulb. The cervical vertebral arteries are widely patent throughout their course. No evidence of occlusion, stenosis, or dissection. Dilation of the proximal suboptimal due to multiple due to opacification of venous collaterals. No definite acute abnormalities in the neck soft tissues. No apical pneumothorax. No acute osseous abnormalities. IMPRESSION: 1. No acute abnormality identified in the intracranial arterial circulation. 2. No evidence of stenosis/occlusion in the cervical carotid or vertebral arteries. This exam was performed according to our departmental dose-optimization program, which includes autom ated exposure control, adjustment of the mA and/or kV according to patient size and/or use of iterati ve reconstruction technique. Electronically signed by: Miguelangel Gillespie 02/02/2019 10:43 PM CDT Due to temporary technical issues with the PACS/Fluency reporting system, reports are being signed by the in house radiologist as a courtesy to ensure prompt reporting. The interpreting radiologist is f ully responsible for the content of the report.
--- NOTE | 2019-02-03 10:33 | RAD REPORT ---
EXAM DESCRIPTION: CT - Neck Angio - 02/02/2019 10:53 pm CLINICAL HISTORY: 73 years, Male, Aphasia;Slurred speech COMPARISON: None. TECHNIQUE: Axial CTA images of the head and neck obtained following the uncomplicated intravenous ad ministration of iodinated contrast. 3-D/MIP reformatted images available. Intracranial evaluation is somewhat suboptimal due to venous contamination. Motion artifact with the CTA of the neck. DLP: 477.6 mGycm FINDINGS: CTA head: In the anterior circulation, the intracranial internal carotid arteries have normal course and calibe r. The internal carotid arteries bifurcate into widely patent A1 and M1 segments of the anterior and middle cerebral arteries respectively. No evidence of flow-limiting stenosis, aneurysm, occlusion, or dissection in the anterior circulation. The anterior communicating artery is patent. Mild calcified nonflow-limiting atherosclerotic plaque paraclinoid internal carotid arteries. In the posterior circulation, the intracranial vertebral arteries combine to form a widely patent bas ilar artery. The basilar artery bifurcates into widely patent P1 segments of the posterior cerebral a rtery. No evidence of stenosis, aneurysm, occlusion, or dissection in the posterior circulation. No definite acute intracranial abnormality identified. Evaluated for acute intracranial hemorrhage is suboptimal due to contrast administration. No acute abnormality of the osseous calvarium. Paranasal sinuses and mastoid air cells are well aerated. Bilateral deep brain stimulators identified. CTA NECK: The aortic arch has normal anatomic configuration. The origin of the great vessels are widely patent. The right common carotid artery is widely patent and bifurcates into widely patent internal and exter nal carotid arteries. 0% stenosis by NASCET criteria. No evidence of occlusion or dissection. Mild no nflow limiting atherosclerotic plaque at the carotid bulb. The left common carotid artery is widely patent and bifurcates into widely patent internal and metal sprayer al carotid arteries. 0% stenosis by NASCET criteria. No evidence of occlusion or dissection. Mild non flow limiting atherosclerotic plaque at the carotid bulb. The cervical vertebral arteries are widely patent throughout their course. No evidence of occlusion, stenosis, or dissection. Dilation of the proximal suboptimal due to multiple due to opacification of venous collaterals. No definite acute abnormalities in the neck soft tissues. No apical pneumothorax. No acute osseous abnormalities. IMPRESSION: 1. No acute abnormality identified in the intracranial arterial circulation. 2. No evidence of stenosis/occlusion in the cervical carotid or vertebral arteries. This exam was performed according to our departmental dose-optimization program, which includes autom ated exposure control, adjustment of the mA and/or kV according to patient size and/or use of iterati ve reconstruction technique. Electronically signed by: Miguelangel Gillespie 02/02/2019 10:43 PM CDT Due to temporary technical issues with the PACS/Fluency reporting system, reports are being signed by the in house radiologist as a courtesy to ensure prompt reporting. The interpreting radiologist is f ully responsible for the content of the report.
== END 2019-02-03 01:03 | disposition short-term general hospital (02) ==
LOC: ER 19:17
DX: I63.9 Cerebral infarction, unspecified (principal); R47.01 Aphasia; N19 Unspecified kidney failure; E66.9 Obesity, unspecified; R29.702 NIHSS score 2; I10 Essential (primary) hypertension; G20 Parkinson's disease; Z88.5 Allergy status to narcotic agent; Z85.038 Personal history of other malignant neoplasm of large intestine; Z85.46 Personal history of malignant neoplasm of prostate
CPT/HCPCS: 96365; 93005; 85025; 80048; 36415; 83735; 82550; 85610; 82962; 85730; 81003; 84484; 82553; 70496; 70498; 70450; 71045; 96375; 99291; Q9967; J2997; J7030

== ENCOUNTER 2019-07-30 17:35 | Emergency (ER) | payer OTHER ==
[2019-07-30 18:30] LABS: Absolute Lymphocytes (CBC) 0.6 K/uL (0.7-4.9); Basophils % 1.1 % (0-1.3); Hematocrit 37.1 % (39.6-49.0); Lymphocytes % 9.9 % (15.3-44.8); MPV 7.7 fL (7.6-11.3); RBC Red Blood Cell Count 3.96 M/uL (4.33-5.43)
[2019-07-30 18:47] LABS: Potassium 4.1 mmol/L (3.5-5.1)
[2019-07-30] MEDS ORDERED: ENOXAPARIN 100 MG/ML SYR SQ ONE (19:56)
--- NOTE | 2019-07-30 20:06 | ER ---
Nurse's Notes [facility] Name: Christian Gonzales III Age: 74 yrs Sex: Male : 1945 Arrival Date: 07/30/2019 Time: 17:38 Bed 18 Private MD: Ramez Mitchell H Diagnosis: Shortness of breath Presentation: 07/30 17:40 Presenting complaint: Had outpatient labs drawn today, sent by Dr. Pennington for DDimer hb 1009. Transition of care: patient was not received from another setting of care. Onset of symptoms was July 30, 2019. Risk Assessment: Do you want to hurt yourself or someone else? Patient reports no desire to harm self or others. Initial Sepsis Screen: Does the patient meet any 2 criteria? No. Patient's initial sepsis screen is negative. Does the patient have a suspected source of infection? No. Patient's initial sepsis screen is negative. Care prior to arrival: None. 17:40 Method Of Arrival: Wheelchair hb 17:40 Acuity: ANDRES 3 hb Historical: - Allergies: 17:44 Demerol; hb - Home Meds: 17:44 carbidopa-levodopa 25-100 mg Oral tab 2 tabs as needed up to eight times a day hb [Active]; citalopram 20 mg tab 1 tab once daily [Active]; Lasix 20 mg Oral tab 2 tabs 2 times per day [Active]; Potassium Chloride 99 mg Oral once daily [Active]; ropinirole 8 mg Oral Tb24 1 tab once daily [Active]; - PMHx: 17:44 barett's esophagus; cancer - colon and prostate; Hypertension; kidney problems; hb Myocardial infarction; Parkinsons; Prostate Cancer; PVD; - Immunization history:: Adult Immunizations up to date. - Social history:: Smoking status: Patient/guardian denies using tobacco. - Ebola Screening: : No symptoms or risks identified at this time. Screenin:20 Abuse screen: Denies threats or abuse. Denies injuries from another. Nutritional sg screening: No deficits noted. Tuberculosis screening: No symptoms or risk factors identified. Never had TB. Fall Risk Fall in past 12 months (25 points). Mental Status- Overestimates/Forgets Limitations (15 pts.). Total Wolfe Fall Scale indicates Low Risk Score (25-44 pts). Fall prevention measures have been instituted. Placed close to Nursing Station Family Present and informed to notify staff if they need to leave bedside. Assessment: 18:20 General: Appears in no apparent distress. well groomed, well developed, well nourished, sg Behavior is calm, cooperative, appropriate for age. Pain: Denies pain. Neuro: Level of Consciousness is awake, alert, obeys commands, Oriented to person, place, time, Capsule Filling Machine Operator are equal bilaterally Speech is normal, Facial symmetry appears normal. Cardiovascular: Patient's skin is warm and dry. Chest pain is denied. Respiratory: Reports labored breathing Airway is patent Respiratory effort is even, labored, shallow, Respiratory pattern is regular, symmetrical. GI: Abdomen is round non-distended, obese, Reports tolerance of fluids, tolerance of food. : No signs and/or symptoms were reported regarding the genitourinary system. EENT: Nares are clear bilaterally Oral mucosa is moist. Throat is pink. Derm: Skin is pink, warm \T\ dry. Bruising that is dark purple, green, yellow, on right eye and nose. Musculoskeletal: Circulation, motion, and sensation intact. Range of motion: intact in all extremities. 19:15 Reassessment: Patient appears in no apparent distress at this time. Patient and/or cc3 family updated on plan of care and expected duration. Pain level reassessed. Patient is alert, oriented x 3, equal unlabored respirations, skin warm/dry/pink. Received this male patient from morning shift RN Leopoldo with IV cannula gauge 22 at the right forearm. Patient denies pain at this time. General: Appears in no apparent distress. comfortable, Behavior is calm, cooperative, appropriate for age. Pain: Denies pain. Neuro: Level of Consciousness is awake, alert, obeys commands, Oriented to person, place, time, situation, Appropriate for age Capsule Filling Machine Operator are equal bilaterally Speech is normal, Facial symmetry appears normal. Cardiovascular: Denies chest pain, Capillary refill < 3 seconds in bilateral fingers Patient's skin is warm and dry. Chest pain is denied. Respiratory: Airway is patent Respiratory effort is even, shallow, Respiratory pattern is regular, symmetrical, Breath sounds are clear bilaterally. GI: Abdomen is round obese, Bowel sounds present X 4 quads. Abd is soft and non tender X 4 quads. : No signs and/or symptoms were reported regarding the genitourinary system. EENT: No signs and/or symptoms were reported regarding the EENT system. Derm: Skin is pink, warm \T\ dry. Bruising that is dark purple, green, yellow, on nose and right eye. Musculoskeletal: Circulation, motion, and sensation intact. Range of motion: intact in all extremities. 20:20 Reassessment: Patient appears in no apparent distress at this time. Patient and/or cc3 family updated on plan of care and expected duration. Pain level reassessed. Patient is alert, oriented x 3, equal unlabored respirations, skin warm/dry/pink. TIRE BEADER MAKER Jake discharged the patient home. IV cannula removed and patient left ER vitally stable by wheelchair escorted by me and the patient's . No valuables left in the patient's room. Patient denies pain at this time. Patient states feeling better. Patient states symptoms have improved. Vital Signs: 17:42 BP 119 / 76; Pulse 73; Resp 20; Temp 97.9; Pulse Ox 97% on R/A; Weight 122.47 kg; hb Height 5 ft. 11 in. (180.34 cm); Pain 5/10; 18:52 BP 126 / 73; Pulse 67; Resp 19; Pulse Ox 98% on R/A; dh3 19:30 BP 136 / 79; Pulse 68; Resp 20 S; Temp 97.7(O); Pulse Ox 100% on R/A; cc3 20:16 BP 129 / 77; Pulse 69; Resp 20 S; Pulse Ox 98% on R/A; Pain 0/10; cc3 17:42 Body Mass Index 37.66 (122.47 kg, 180.34 cm) hb ED Course: 17:38 Patient arrived in ED. mr 17:38 Ramez Mitchell DO is Private Physician. mr 17:42 Triage completed. hb 17:43 Arm band placed on. hb 17:45 Lon[facility]eph [facility]C [facility]. la1 17:45 Chele Ortega MD is Attending Physician. la1 18:07 Leopoldo Diaz, AARON is Primary Nurse. sg 18:24 Initial lab(s) drawn, by ne, sent to lab. Inserted saline lock: 22 gauge in right sg forearm, using aseptic technique. Blood collected. 19:15 Patient has correct armband on for positive identification. Bed in low position. Call cc3 light in reach. Side rails up X2. Adult w/ patient. formation testing operator on. Pulse ox on. NIBP on. 20:20 No provider procedures requiring assistance completed. IV discontinued, intact, cc3 bleeding controlled, No redness/swelling at site. Pressure dressing applied. Administered Medications: 19:51 Drug: Lovenox 100 mg Route: Sub-Q; Site: right lower abdomen; cc3 20:20 Follow up: Response: No adverse reaction cc3 Outcome: 20:05 Discharge ordered by . la1 20:20 Discharged to home via wheelchair, with family. cc3 20:20 Condition: stable 20:20 Discharge instructions given to patient, family, Instructed on discharge instructions, follow up and referral plans. Demonstrated understanding of instructions, follow-up care. 20:31 Patient left the ED. cc3 Signatures: Leopoldo Diaz RN RN Emily Locke Lonnie Joseph, BRAILLE TRANSCRIBER-C BRAILLE TRANSCRIBER-Cla1 July Nava RN RN hb Herrera, Deanna 3 Sydnie Buchanan cc3
--- NOTE | 2019-07-30 20:06 | EDPHYS ---
Physician Documentation [facility] Name: Christian Gonzales III Age: 74 yrs Sex: Male : 1945 Arrival Date: 07/30/2019 Time: 17:38 Bed 18 Private MD: Ramez Mitchell H ED Physician Chele Ortega HPI: 07/30 17:59 This 74 yrs old Male presents to ER via Wheelchair with complaints of la1 Abnormal Lab Results. 17:59 Pt was sent by Dr. Pennington for elevated DDIMER, had US HEIDI LE negative for DVT as well as la1 a CXR without abnormal findings. BNP was elevated, DDIMER was 1009, sent here for further evaluation. Onset: The symptoms/episode began/occurred today. Severity of symptoms: At their worst the symptoms were moderate. The patient has not experienced similar symptoms in the past. Pt with history of CA, HEIDI LE swelling and foot wounds . Historical: - Allergies: 17:44 Demerol; hb - Home Meds: 17:44 carbidopa-levodopa 25-100 mg Oral tab 2 tabs as needed up to eight times a day hb [Active]; citalopram 20 mg tab 1 tab once daily [Active]; Lasix 20 mg Oral tab 2 tabs 2 times per day [Active]; Potassium Chloride 99 mg Oral once daily [Active]; ropinirole 8 mg Oral Tb24 1 tab once daily [Active]; - PMHx: 17:44 barett's esophagus; cancer - colon and prostate; Hypertension; kidney problems; hb Myocardial infarction; Parkinsons; Prostate Cancer; PVD; - Immunization history:: Adult Immunizations up to date. - Social history:: Smoking status: Patient/guardian denies using tobacco. - Ebola Screening: : No symptoms or risks identified at this time. 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 Exam: 18:12 Constitutional: This is a well developed, well nourished patient who is awake, alert, la1 and in no acute distress. Eyes: Pupils equal round and reactive to light, extra-ocular motions intact. Periorbital areas with no swelling, redness, or edema. ENT: Mucous membranes moist. Neck: Trachea midline. Supple, full range of motion without nuchal rigidity, or vertebral point tenderness. No Meningismus. Chest/axilla: Normal chest wall appearance and motion. Nontender with no deformity. No lesions are appreciated. Cardiovascular: Regular rate and rhythm with a normal S1 and S2. No gallops, murmurs, or rubs. Normal PMI, no JVD. No pulse deficits. + LE swelling, chronic in nature Respiratory: Lungs have equal breath sounds bilaterally, clear to auscultation No rales, rhonchi or wheezes noted. No increased work of breathing, no retractions or nasal flaring. Abdomen/GI: Soft, non-tender, with normal bowel sounds. No distension No evidence of tenderness throughout. Vital Signs: 17:42 BP 119 / 76; Pulse 73; Resp 20; Temp 97.9; Pulse Ox 97% on R/A; Weight 122.47 kg; hb Height 5 ft. 11 in. (180.34 cm); Pain 5/10; 18:52 BP 126 / 73; Pulse 67; Resp 19; Pulse Ox 98% on R/A; dh3 19:30 BP 136 / 79; Pulse 68; Resp 20 S; Temp 97.7(O); Pulse Ox 100% on R/A; cc3 20:16 BP 129 / 77; Pulse 69; Resp 20 S; Pulse Ox 98% on R/A; Pain 0/10; cc3 17:42 Body Mass Index 37.66 (122.47 kg, 180.34 cm) hb MDM: 17:45 Patient medically screened. la1 20:02 Data reviewed: vital signs, nurses notes, I have discussed the patient's la1 presentation/case with the attending Emergency Department Physician; and as a result, I will discharge patient. Data interpreted: Pulse oximetry: on room air is 100 %. Interpretation: normal. Test interpretation: by ED physician or midlevel provider:. Counseling: I had a detailed discussion with the patient and/or guardian regarding: the historical points, exam findings, and any diagnostic results supporting the discharge/admit diagnosis, lab results, the need for outpatient follow up, Imaging services for V/Q scan, to return to the emergency department if symptoms worsen or persist or if there are any questions or concerns that arise at home. ED course: Discussed case with Dr. Pennington, due to the fact that the patient experiences episodes of psychosis while in the hospital pt will have V/Q scan outpatient stat in the morning. Order written, given dose of lovenox in the ED. Strict return precautions given. Pt states he is at his baseline level of SOB, denies CP. . 07/30 17:57 Order name: CBC with Diff; Complete Time: 18:45 la1 07/30 17:57 Order name: BMP; Complete Time: 18:53 la1 07/30 17:57 Order name: SL; Complete Time: 18:20 la1 Administered Medications: 19:51 Drug: Lovenox 100 mg Route: Sub-Q; Site: right lower abdomen; cc3 20:20 Follow up: Response: No adverse reaction cc3 Disposition: 20:49 Co-signature as Attending Physician, Chele Ortega MD I agree with the assessment and wa plan of care. Disposition: 07/30/19 20:05 Discharged to Home. Impression: Shortness of breath. - Condition is Stable. - Discharge Instructions: Shortness of Breath. - Medication Reconciliation Form, Thank You Letter form. - Follow up: Private Physician; When: Tomorrow; Reason: Recheck today's complaints, Re-evaluation by your physician. - Problem is new. - Symptoms are unchanged. - Notes: If you do not hear from the hospital by 0800 in the morning please call and ask to speak to the mailhouse operator or the ED charge nurse. Signatures: Dispatcher [employer] EDMS Lonnie Joseph, JULSISA-C SHARK BIOLOGIST-Cla1 July Nava RN RN hb Appiah, William, MD MD wa Cordel, Charlene cc3 Corrections: (The following items were deleted from the chart) 20:31 20:05 07/30/2019 20:05 Discharged to Home. Impression: Shortness of breath. Condition cc3 is Stable. Forms are Medication Reconciliation Form, Thank You Letter, Antibiotic Education, Prescription Opioid Use. Follow up: Private Physician; When: Tomorrow; Reason: Recheck today's complaints, Re-evaluation by your physician. Problem is new. Symptoms are unchanged. la1
[2019-07-31 06:35] VITALS: BP 136/79; TEMP 97.7; O2SAT 100
== END 2019-07-30 20:31 | disposition home or self-care (01) ==
LOC: ER 17:35
DX: R06.02 Shortness of breath (principal); I10 Essential (primary) hypertension; I25.2 Old myocardial infarction; Z88.5 Allergy status to narcotic agent; Z85.01 Personal history of malignant neoplasm of esophagus; Z85.46 Personal history of malignant neoplasm of prostate; Z85.038 Personal history of other malignant neoplasm of large intestine
CPT/HCPCS: 85025; 80048; 36415; 96372; 99284; J1650